=== PATIENT | female | born 1980 | race Caucasian/White ===

== ENCOUNTER 2017-12-12 19:27 | Emergency (ER) | payer SELFPAY ==
--- NOTE | 2017-12-12 20:03 | ER ---
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 Transition of care: patient was not received from another setting of care. Onset of symptoms is unknown. Care prior to arrival: None. 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 - Social history:: Smoking status: Patient uses tobacco products, smokes one pack cigarettes per day. Screenin:19 Abuse screen: Denies threats or abuse. Denies injuries from another. Nutritional aj screening: No deficits noted. Tuberculosis screening: No symptoms or risk factors identified. Fall Risk None identified. Assessment: 20:01 General: Appears in no apparent distress. comfortable, Behavior is calm, cooperative, aj appropriate for age. Pain: Complains of pain in left arm and anterior aspect of left shoulder. Neuro: Level of Consciousness is awake, alert, obeys commands, Oriented to person, place, time, situation, Gait is steady, Speech is normal, Facial symmetry appears normal. Respiratory: Airway is patent Respiratory effort is even, unlabored, Respiratory pattern is regular, symmetrical. Derm: Skin is intact, is healthy with good turgor, Skin is pink, warm \T\ dry. normal. Musculoskeletal: Circulation, motion, and sensation intact. Reports numbness in left arm. Vital Signs: 19:51 BP 110 / 91; Pulse 106; Resp 18 S; Temp 98.5(O); Pulse Ox 97% on R/A; Weight 104.33 kg bb (R); Height 5 ft. 7 in. (170.18 cm) (R); Pain 7/10; 19:51 Body Mass Index 36.02 (104.33 kg, 170.18 cm) ED Course: 19:30 Patient arrived in ED. al2 19:46 Anastasia Mcgee FNP-C is [facility]. kb 19:46 Shade Johnston MD is Attending Physician. kb 19:49 Triage completed. bb 19:51 Arm band placed on Patient placed in an exam room, on a stretcher, on pulse oximetry. bb 19:53 Era Stroud, RN is Primary Nurse. aj 20:19 Patient has correct armband on for positive identification. aj 20:19 No provider procedures requiring assistance completed. Patient did not have IV access aj during this emergency room visit. Administered Medications: No medications were administered Outcome: 20:02 Discharge ordered by MD. kb 20:19 Discharged to home ambulatory. aj 20:19 Condition: good 20:19 Discharge instructions given to patient, Instructed on discharge instructions, follow up and referral plans. medication usage, Demonstrated understanding of instructions, follow-up care, medications, Prescriptions given X 2. 20:20 Patient left the ED. aj Signatures: Anastasia Mcgee FNP-C FNP-Era Yao, RN RN Sun Willson RN RN Lorene Harkins al2
--- NOTE | 2017-12-12 20:03 | EDPHYS ---
Physician Documentation [facility] Name: Barbara Acevedo Age: 37 yrs Sex: Female : 1980 Arrival Date: 12/12/2017 Time: 19:30 Bed 14 Private MD: ED Physician Shade Johnston HPI: 12/12 19:57 This 37 yrs old Female presents to ER via Ambulatory with complaints of arm kb pain, swollen lymphnode. 19:57 The patient or guardian complains of decreased range of motion, pain, that is chronic. kb The complaints affect the anterior aspect of left shoulder. Context: The problem was sustained at home, resulted from a chronic condition. Onset: The symptoms/episode began/occurred 2 year(s) ago, and became worse today. Treatment prior to arrival includes: no previous treatment. Modifying factors: The symptoms are alleviated by nothing. the symptoms are aggravated by movement. Associated signs and symptoms: Pertinent positives: decreased range of motion, pain. Severity of symptoms: At their worst the symptoms were moderate, in the emergency department the symptoms are unchanged. The patient has experienced similar episodes in the past, several times. The patient has not recently seen a physician. Pt complains of left arm pain and numbness that has been ongoing after having a tumor removed in 2014. States it has been worse today. Also reports a lymphnode that has been enlarged for 8 years. States it got bigger 6 months ago. . 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 - Social history:: Smoking status: Patient uses tobacco products, smokes one pack cigarettes per day. ROS: 19:55 Constitutional: Negative for fever, chills, and weight loss, Cardiovascular: Negative kb for chest pain, palpitations, and edema, Respiratory: Negative for shortness of breath, cough, wheezing, and pleuritic chest pain, Abdomen/GI: Negative for abdominal pain, nausea, vomiting, diarrhea, and constipation, Skin: Negative for injury, rash, and discoloration, Neuro: Negative for headache, weakness, numbness, tingling, and seizure. 19:55 Neck: Positive for swollen nodes. 19:55 MS/extremity: Positive for pain, paresthesias, of the left arm. Exam: 19:55 Constitutional: This is a well developed, well nourished patient who is awake, alert, kb and in no acute distress. Head/Face: Normocephalic, atraumatic. Chest/axilla: Normal chest wall appearance and motion. Nontender with no deformity. No lesions are appreciated. Cardiovascular: Regular rate and rhythm with a normal S1 and S2. No gallops, murmurs, or rubs. Normal PMI, no JVD. No pulse deficits. Respiratory: Lungs have equal breath sounds bilaterally, clear to auscultation and percussion. No rales, rhonchi or wheezes noted. No increased work of breathing, no retractions or nasal flaring. Abdomen/GI: Soft, non-tender, with normal bowel sounds. No distension or tympany. No guarding or rebound. No evidence of tenderness throughout. Skin: Warm, dry with normal turgor. Normal color with no rashes, no lesions, and no evidence of cellulitis. Neuro: Awake and alert, GCS 15, oriented to person, place, time, and situation. Cranial nerves II-XII grossly intact. Motor strength 5/5 in all extremities. Sensory grossly intact. Cerebellar exam normal. Normal gait. 19:55 Neck: Lymph nodes: lymphadenopathy is appreciated, submandibular nodes, right side . 19:55 Musculoskeletal/extremity: Extremities: grossly normal except: noted in the left arm: decreased ROM, pain, ROM: limited active range of motion due to pain, in the anterior aspect of left shoulder, Circulation is intact in all extremities. Sensation intact. Vital Signs: 19:51 BP 110 / 91; Pulse 106; Resp 18 S; Temp 98.5(O); Pulse Ox 97% on R/A; Weight 104.33 kg bb (R); Height 5 ft. 7 in. (170.18 cm) (R); Pain 7/10; 19:51 Body Mass Index 36.02 (104.33 kg, 170.18 cm) carina MDM: 19:46 Patient medically screened. kb 19:54 Data reviewed: vital signs, nurses notes. Data interpreted: Pulse oximetry: on room air kb is 97 %. Interpretation: normal. Counseling: I had a detailed discussion with the patient and/or guardian regarding: the historical points, exam findings, and any diagnostic results supporting the discharge/admit diagnosis, the need for outpatient follow up, a family practitioner, to return to the emergency department if symptoms worsen or persist or if there are any questions or concerns that arise at home. 20:00 ED course: Pt educated to follow up with Dr Lewis (PCP) about enlarged lymphnode x8 kb years. Pt has no difficulty swallowing, speaking or breathing. . Administered Medications: No medications were administered Disposition: 12/13 15:55 Co-signature as Attending Physician, Shade Johnston MD I agree with the assessment and michael plan of care. Disposition: 12/12/17 20:02 Discharged to Home. Impression: Radiculopathy. - Condition is Stable. - Discharge Instructions: Cervical Radiculopathy, [id number]. - Prescriptions for Prednisone 20 mg Oral Tablet - take 1 tablet by ORAL route once daily for 5 days; 5 tablet. Cyclobenzaprine 10 mg Oral Tablet - take 1 tablet by ORAL route every 8 hours As needed; 21 tablet. - Medication Reconciliation Form, Thank You Letter, Antibiotic Education, Prescription Opioid Use form. - Follow up: Emergency Department; When: As needed; Reason: Worsening of condition. Follow up: Private Physician; When: 2 - 3 days; Reason: Recheck today's complaints, Continuance of care, Re-evaluation by your physician. Signatures: Anastasia Mcgee, BARREL FILLER-C BARREL FILLER-Era Yao, RN Shade Grissom MD MD cha Ballard, Brenda, CYNTHIA RN carina Corrections: (The following items were deleted from the chart) 12/12 19:55 19:55 MS/extremity: Positive for pain, paresthesias, kb kb
[2017-12-12 20:24] VITALS: BP 110/91; TEMP 98.5; O2SAT 97
== END 2017-12-12 20:20 | disposition home or self-care (01) ==
LOC: ER 19:27
DX: M54.10 Radiculopathy, site unspecified (principal); J45.909 Unspecified asthma, uncomplicated; F17.210 Nicotine dependence, cigarettes, uncomplicated
CPT/HCPCS: 99283

== ENCOUNTER 2018-01-30 12:59 | Emergency (ER) | payer SELFPAY ==
[2018-01-30] MEDS ORDERED: METHYLPREDNISOLONE 125 MG INJ ONE (13:43)
[2018-01-30] MEDS ORDERED: ALBUTEROL 2.5 MG/3 ML NEB SOL ONE (13:43)
[2018-01-30] MEDS ORDERED: IPRATROPIUM BROM 0.5MG/2.5ML ONE (13:44)
--- NOTE | 2018-01-30 14:12 | RAD REPORT ---
EXAM DESCRIPTION: RAD - Chest Pa And Lat (2 Views) - 01/30/2018 1:50 pm CLINICAL HISTORY: Cough and congestion, dyspnea COMPARISON: February 2017 TECHNIQUE: PA and lateral views of the chest were obtained. FINDINGS: The lungs are clear of an acute process. No failure or volume overload. Trachea is midline . Heart size is normal and central vasculature is within normal limits. No pleural effusion or pne umothorax seen. No acute bone finding. Multiple old bilateral rib fracture changes noted. An acute b one process is not seen. No aortic abnormality. IMPRESSION: No acute cardiopulmonary process. No suspicious change from comparison.
--- NOTE | 2018-01-30 14:32 | ER ---
Nurse's Notes [facility] Name: Barbara Acevedo Age: 37 yrs Sex: Female : 1980 Arrival Date: 01/30/2018 Time: 13:02 Bed 25 Private MD: None, None Diagnosis: Asthma;Dyspnea, unspecified Presentation: 01/30 13:26 Presenting complaint: Patient states: Cough and nasal congestion since yesterday. iw Patient reports she has been using her albuterol inhaler more. Transition of care: patient was not received from another setting of care. Onset of symptoms was January 29, 2018. Care prior to arrival: None. 13:26 Method Of Arrival: Ambulatory iw 13:26 Acuity: ESTUARDO 4 iw 15:03 Initial Sepsis Screen: Does the patient meet any 2 criteria? No. Patient's initial tl3 sepsis screen is negative. Does the patient have a suspected source of infection? No. Patient's initial sepsis screen is negative. Triage Assessment: 13:27 General: Appears in no apparent distress. comfortable, Behavior is calm, cooperative, iw appropriate for age. Pain: Denies pain. EENT: Reports nasal congestion nasal discharge. Neuro: Level of Consciousness is awake, alert, obeys commands, Oriented to person, place, time, situation, Appropriate for age. Respiratory: Reports cough that is Airway is patent Respiratory effort is even, unlabored, Respiratory pattern is regular, symmetrical. Derm: Skin is intact, is healthy with good turgor, Skin is pink, warm \T\ dry. normal. 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 - Social history:: Smoking status: Patient uses tobacco products, smokes one pack cigarettes per day. - Family history:: not pertinent. - Hospitalizations: : No recent hospitalization is reported. Screenin:34 Abuse screen: Denies threats or abuse. Nutritional screening: No deficits noted. tl3 Tuberculosis screening: No symptoms or risk factors identified. Fall Risk None identified. Assessment: 13:34 General: Appears uncomfortable, well groomed, well developed, well nourished, Behavior tl3 is calm, cooperative, appropriate for age. Pain: Denies pain. Neuro: Level of Consciousness is awake, alert, obeys commands, Oriented to person, place, time, situation, Appropriate for age. Cardiovascular: Heart tones S1 S2 present Capillary refill < 3 seconds in bilateral fingers. Respiratory: Airway is patent Trachea midline Respiratory effort is even, unlabored, Respiratory pattern is regular, symmetrical, Breath sounds are clear bilaterally. Respiratory: Reports shortness of breath has been having cough and wheezing for two weeks, but has gotten progressively worse, has used inhaler 4X today. GI: No signs and/or symptoms were reported involving the gastrointestinal system. : No signs and/or symptoms were reported regarding the genitourinary system. EENT: No signs and/or symptoms were reported regarding the EENT system. Derm: No signs and/or symptoms reported regarding the dermatologic system. Musculoskeletal: No signs and/or symptoms reported regarding the musculoskeletal system. 14:16 Reassessment: Patient appears in no apparent distress at this time. No changes from tl3 previously documented assessment. Patient and/or family updated on plan of care and expected duration. Pain level reassessed. Patient is alert, oriented x 3, equal unlabored respirations, skin warm/dry/pink. pt on neb treatment. Vital Signs: 13:27 BP 123 / 65; Pulse 86; Resp 20; Temp 98.0; Pulse Ox 98% on R/A; Weight 98.43 kg; Height iw 5 ft. 7 in. (170.18 cm); 13:34 BP 107 / 94; Pulse 82; Resp 18; Pulse Ox 99% on R/A; tl3 14:16 Pulse 79; Resp 18; Pulse Ox 100% on Nebulizer Mask; tl3 13:27 Body Mass Index 33.99 (98.43 kg, 170.18 cm) iw ED Course: 13:02 Patient arrived in ED. mr 13:02 None, None is Private Physician. mr 13:27 Triage completed. iw 13:27 Arm band placed on left wrist. Patient placed in an exam room. iw 13:29 Cristopher Worthington MD is Attending Physician. rn 13:29 Dariana Deal, CYNTHIA is Primary Nurse. tl3 13:34 Resting quietly. Awaiting for x-ray. tl3 13:34 Patient has correct armband on for positive identification. Bed in low position. Call tl3 light in reach. Side rails up X 1. Adult w/ patient. Pulse ox on. NIBP on. 13:34 No provider procedures requiring assistance completed. Patient did not have IV access tl3 during this emergency room visit. 13:45 Patient moved to radiology via wheelchair. tl3 13:49 XRAY Chest Pa And Lat (2 Views) In Process Unspecified. EDMS Administered Medications: 13:50 Drug: SOLU-Medrol 125 mg Route: IM; Site: left gluteus; tl3 14:18 Follow up: Response: No adverse reaction tl3 13:55 Drug: Albuterol - atroVENT (3:1) (2.5 mg - 0.5 mg) 3 ml Route: Nebulizer; tl3 15:04 Follow up: Response: No adverse reaction; Wheezing diminished tl3 Outcome: 14:31 Discharge ordered by . rn 15:03 Discharged to home ambulatory. tl3 15:03 Condition: good 15:03 Discharge instructions given to patient, Instructed on discharge instructions, follow up and referral plans. medication usage, Demonstrated understanding of instructions, follow-up care, medications, Prescriptions given X 2, stressed proper use of inhaler when needed 15:04 Patient left the ED. tl3 Signatures: Dispatcher [employer] EDOH Annie Pimentel Irene, RN RN Cristopher Worthington MD MD rn Lowrey, Tammy, CYNTHIA RN tl3
--- NOTE | 2018-01-30 14:32 | EDPHYS ---
Physician Documentation [facility] Name: Barbara Acevedo Age: 37 yrs Sex: Female : 1980 Arrival Date: 01/30/2018 Time: 13:02 Bed 25 Private MD: None, None ED Physician Cristopher Worthington HPI: 01/30 14:01 This 37 yrs old Female presents to ER via Ambulatory with complaints of rn Asthma Exacerbation. 14:01 Onset: The symptoms/episode began/occurred this morning. Modifying factors: The rn symptoms are alleviated by nothing, the symptoms are aggravated by nothing. Severity of symptoms: At their worst the symptoms were mild in the emergency department the symptoms are unchanged. The patient has experienced similar episodes in the past. The patient has not recently seen a physician. 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 - Social history:: Smoking status: Patient uses tobacco products, smokes one pack cigarettes per day. - Family history:: not pertinent. - Hospitalizations: : No recent hospitalization is reported. ROS: 14:01 Constitutional: Negative for fever, chills, and weight loss, Eyes: Negative for injury, rn pain, redness, and discharge, Cardiovascular: Negative for chest pain, palpitations, and edema, Respiratory: Negative for pleuritic chest pain, Abdomen/GI: Negative for abdominal pain, nausea, vomiting, diarrhea, and constipation, MS/Extremity: Negative for injury and deformity, Skin: Negative for injury, rash, and discoloration, Neuro: Negative for headache, weakness, numbness, tingling, and seizure Exam: 14:01 Constitutional: This is a well developed, well nourished patient who is awake, alert, rn and in no acute distress. Head/Face: Normocephalic, atraumatic. Eyes: Pupils equal round and reactive to light, extra-ocular motions intact. Lids and lashes normal. Conjunctiva and sclera are non-icteric and not injected. Cornea within normal limits. Periorbital areas with no swelling, redness, or edema. Neck: Trachea midline, no thyromegaly or masses palpated, and no cervical lymphadenopathy. Supple, full range of motion without nuchal rigidity, or vertebral point tenderness. No Meningismus. Cardiovascular: Regular rate and rhythm with a normal S1 and S2. No gallops, murmurs, or rubs. Normal PMI, no JVD. No pulse deficits. Respiratory: focal wheezing RUL, mild tachypnea, no retractions, walked to room Abdomen/GI: Soft, non-tender, with normal bowel sounds. No distension or tympany. No guarding or rebound. No evidence of tenderness throughout. MS/ Extremity: Pulses equal, no cyanosis. Neurovascular intact. Full, normal range of motion. Equal circumference. Neuro: Awake and alert, GCS 15, oriented to person, place, time, and situation. Cranial nerves II-XII grossly intact. Motor strength 5/5 in all extremities. Sensory grossly intact. Cerebellar exam normal. Normal gait. Vital Signs: 13:27 BP 123 / 65; Pulse 86; Resp 20; Temp 98.0; Pulse Ox 98% on R/A; Weight 98.43 kg; Height iw 5 ft. 7 in. (170.18 cm); 13:34 BP 107 / 94; Pulse 82; Resp 18; Pulse Ox 99% on R/A; tl3 14:16 Pulse 79; Resp 18; Pulse Ox 100% on Nebulizer Mask; tl3 13:27 Body Mass Index 33.99 (98.43 kg, 170.18 cm) iw MDM: 13:29 Patient medically screened. rn 14:31 Differential diagnosis: acute asthma, reactive airway, URI. Data reviewed: vital signs, rn nurses notes, lab test result(s), radiologic studies, plain films, and as a result, I will discharge patient. Counseling: I had a detailed discussion with the patient and/or guardian regarding: the historical points, exam findings, and any diagnostic results supporting the discharge/admit diagnosis, lab results, the need for outpatient follow up, to return to the emergency department if symptoms worsen or persist or if there are any questions or concerns that arise at home. Response to treatment: the patient's symptoms have mildly improved after treatment, and as a result, I will discharge patient. Special discussion: I discussed with the patient/guardian in detail that at this point there is no indication for admission to the hospital. It is understood, however, that if the symptoms persist or worsen the patient needs to return immediately for re-evaluation. 01/30 13:38 Order name: Strep; Complete Time: 14:31 rn 01/30 13:38 Order name: Flu; Complete Time: 14:31 rn 01/30 13:36 Order name: XRAY Chest Pa And Lat (2 Views); Complete Time: 14:14 rn 01/30 14:30 Order name: Throat Culture EDMS Administered Medications: 13:50 Drug: SOLU-Medrol 125 mg Route: IM; Site: left gluteus; tl3 14:18 Follow up: Response: No adverse reaction tl3 13:55 Drug: Albuterol - atroVENT (3:1) (2.5 mg - 0.5 mg) 3 ml Route: Nebulizer; tl3 15:04 Follow up: Response: No adverse reaction; Wheezing diminished tl3 Disposition: 01/30/18 14:31 Discharged to Home. Impression: Asthma, Dyspnea, unspecified. - Condition is Stable. - Discharge Instructions: Shortness of Breath, Smoking Cessation, Asthma, Acute Bronchospasm. - Prescriptions for Prednisone 20 mg Oral Tablet - take 3 tablet by ORAL route once daily for 5 days; 15 tablet. Zithromax Z- Juan Carlos 250 mg Oral Tablet - take 1 tablet by ORAL route as directed for 5 days Day 1 - take two (2) tablets one time. Day 2, 3, 4 , 5 take one (1) tablet once daily.; 6 tablet. - Medication Reconciliation Form, Thank You Letter, Antibiotic Education, Prescription Opioid Use form. - Follow up: Private Physician; When: As needed; Reason: Recheck today's complaints, Re-evaluation by your physician. - Problem is new. - Symptoms have improved. Signatures: Dispatcher [employer] EDMS Archana Rock RN RN iw Nieto, Roman, MD MD rn Lowrey, Tammy, RN RN tl3 Corrections: (The following items were deleted from the chart) 15:04 14:31 01/30/2018 14:31 Discharged to Home. Impression: Asthma; Dyspnea, unspecified. tl3 Condition is Stable. Forms are Medication Reconciliation Form, Thank You Letter, Antibiotic Education, Prescription Opioid Use. Follow up: Private Physician; When: As needed; Reason: Recheck today's complaints, Re-evaluation by your physician. Problem is new. Symptoms have improved. rn
[2018-01-30 15:10] VITALS: TEMP 98
[2018-01-30 15:11] VITALS: BP 107/94
[2018-01-30 15:12] VITALS: O2SAT 100
== END 2018-01-30 15:04 | disposition home or self-care (01) ==
LOC: ER 12:59
DX: J45.901 Unspecified asthma with (acute) exacerbation (principal); F17.210 Nicotine dependence, cigarettes, uncomplicated
CPT/HCPCS: 71046; 87070; 87081; 87804; 94640; 96372; 99284; J2930

== ENCOUNTER 2018-04-18 08:56 | Emergency (ER) | payer SELFPAY ==
[2018-04-18] MEDS ORDERED: METHYLPREDNISOLONE 125 MG INJ ONE (10:26)
[2018-04-18] MEDS ORDERED: KETOROLAC 30 MG/ML INJ ONE (10:27)
[2018-04-18] MEDS ORDERED: MORPHINE 4 MG/ML SYR ONE (10:27)
--- NOTE | 2018-04-18 10:57 | RAD REPORT ---
EXAM DESCRIPTION: CTSpine Lumbar Wo Con04/18/2018 10:37 am CLINICAL HISTORY: Left leg radiculopathy since this morning. COMPARISON: None TECHNIQUE: Computed axial tomography lumbar spine was obtained with coronal and sagittal reconstruct ion. All CT scans are performed using dose optimization technique as appropriate and may include automated exposure control or mA/KV adjustment according to patient size. FINDINGS: No fracture is seen. No dislocation is noted. A small disc bulge is present at L4-5. The thecal sac measures 9 millimeters. A vacuum phenomena is present L5-S1. There is suggestion of a right conjoined nerve root L5-S1 IMPRESSION: Negative for a lumbar fracture. Mild spondylosis L4-5 resulting in mild central spinal stenosis If the patient continues to have symptoms to suggest a disc herniation then MRI would be recommended
--- NOTE | 2018-04-18 11:42 | EDPHYS ---
Physician Documentation [facility] Name: Barbara Acevedo Age: 37 yrs Sex: Female : 1980 Arrival Date: 04/18/2018 Time: 09:01 Bed 14 Private MD: None, None ED Physician Tico Scott HPI: 04/18 10:11 This 37 yrs old Female presents to ER via Ambulatory with complaints of Hip kdr Pain. 10:11 The patient or guardian reports decreased range of motion, pain. that occurred at home, kdr sustained from unknown reason, There is no obvious deformity, The patient is not able to ambulate. Patient is not able to bear weight. The patient's discomfort radiates to the left hamstring and posterior aspect of left knee. Onset: The symptoms/episode began/occurred this morning. Modifying factors: The symptoms are alleviated by remaining still, the symptoms are aggravated by any movement, weight bearing. Associated signs and symptoms: Loss of consciousness: the patient experienced no loss of consciousness, Pertinent negatives: abdominal pain, altered mental status, anorexia, chest pain, diarrhea, dizziness, dysuria, fever, headache, incontinence, nausea, shortness of breath, vomiting, weakness. Severity of symptoms: At their worst the symptoms were moderate, severe, incapacitating, just prior to arrival, in the emergency department the symptoms have improved, mildly. The patient has not experienced similar symptoms in the past, Has had minor pain in the left hip before but nothing like today. The patient has not recently seen a physician. 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 - Social history:: Smoking status: Patient uses tobacco products, smokes one pack cigarettes per day. - Ebola Screening: : Patient negative for fever greater than or equal to 101.5 degrees Fahrenheit, and additional compatible Ebola Virus Disease symptoms Patient denies exposure to infectious person Patient denies travel to an Ebola-affected area in the 21 days before illness onset No symptoms or risks identified at this time. ROS: 10:11 Constitutional: Negative for fever, chills, and weight loss, Eyes: Negative for injury, kdr pain, redness, and discharge. 10:11 MS/extremity: Positive for injury or acute deformity, decreased range of motion, pain. Exam: 10:11 Constitutional: This is a well developed, well nourished patient who is awake, alert, kdr and in no acute distress. Head/Face: Normocephalic, atraumatic. Eyes: Pupils equal round and reactive to light, extra-ocular motions intact. Lids and lashes normal. Conjunctiva and sclera are non-icteric and not injected. Cornea within normal limits. Periorbital areas with no swelling, redness, or edema. Neck: Trachea midline, no thyromegaly or masses palpated, and no cervical lymphadenopathy. Supple, full range of motion without nuchal rigidity, or vertebral point tenderness. No Meningismus. Chest/axilla: Normal chest wall appearance and motion. Nontender with no deformity. No lesions are appreciated. Cardiovascular: Regular rate and rhythm with a normal S1 and S2. No gallops, murmurs, or rubs. Normal PMI, no JVD. No pulse deficits. Respiratory: Lungs have equal breath sounds bilaterally, clear to auscultation and percussion. No rales, rhonchi or wheezes noted. No increased work of breathing, no retractions or nasal flaring. Abdomen/GI: Soft, non-tender, with normal bowel sounds. No distension or tympany. No guarding or rebound. No evidence of tenderness throughout. Skin: Warm, dry with normal turgor. Normal color with no rashes, no lesions, and no evidence of cellulitis. MS/ Extremity: Pulses equal, no cyanosis. Neurovascular intact. Full, normal range of motion. 10:11 Back: pain, that is mild, Midline pain is mild in lumbar region. More significant pain in the left buttock that radiates into the left posterior thigh, ROM is painful, normal spinal alignment noted, CVA tenderness, is absent, Straight leg raises: right lower extremity does not illicit pain, left lower extremity illicits pain, at 15 degrees. Vital Signs: 09:12 BP 122 / 76; Pulse 85; Resp 16; Temp 98.2; Pulse Ox 100% on R/A; Weight 92.99 kg; iw Height 5 ft. 7 in. (170.18 cm); Pain 9/10; 10:13 BP 103 / 70; Pulse 86; Resp 17; Pulse Ox 100% on R/A; tw2 11:00 BP 122 / 78; Pulse 76; Resp 18; Pulse Ox 99% on R/A; Pain 5/10; em 12:01 BP 125 / 79; Pulse 81; Resp 18; Pulse Ox 97% on R/A; Pain 3/10; em 09:12 Body Mass Index 32.11 (92.99 kg, 170.18 cm) iw MDM: 10:11 Data reviewed: vital signs, nurses notes. Counseling: I had a detailed discussion with kdr the patient and/or guardian regarding: the historical points, exam findings, and any diagnostic results supporting the discharge/admit diagnosis, radiology results, the need for outpatient follow up. 11:41 Patient medically screened. kdr 04/18 10:11 Order name: CT Lumbar Spine Wo Con; Complete Time: 11:02 kdr Administered Medications: 10:33 Drug: SOLU-Medrol 125 mg Route: IVP; Site: right antecubital; iw 10:59 Follow up: Response: No adverse reaction em 10:33 Drug: TORadol 30 mg Route: IVP; Site: right antecubital; iw 10:59 Follow up: Response: No adverse reaction; Pain is decreased em 10:34 Drug: morphine 4 mg Route: IVP; Site: right antecubital; iw 10:59 Follow up: Response: No adverse reaction; Pain is decreased em Disposition: 04/18/18 11:41 Discharged to Home. Impression: Sciatica, left side. - Condition is Stable. - Discharge Instructions: Sciatica, [id number]. - Prescriptions for Ibuprofen 800 mg Oral Tablet - take 1 tablet by ORAL route every 8 hours As needed take with food; 30 tablet. Tylenol- Codeine #3 300-30 mg Oral Tablet - take 2 tablets by ORAL route every 4-6 hours As needed; 16 tablet. Cyclobenzaprine 10 mg Oral Tablet - take 1 tablet by ORAL route every 8 hours As needed; 15 tablet. Medrol (Juan Carlos) 4 mg Oral Tablets, Dose Pack - take 1 tablet by ORAL route as directed - follow package instructions; 1 packet. - Medication Reconciliation Form, Thank You Letter, Prescription Opioid Use, Work release form form. - Follow up: Private Physician; When: 2 - 3 days; Reason: If symptoms return, Further diagnostic work-up, Recheck today's complaints, Continuance of care, Re-evaluation by your physician. - Problem is new. - Symptoms have improved. - Notes: If you pain is not resolving over the next few days, you will need an MRI of your spine. Signatures: Dispatcher [employer] EDME Tico Scott MD MD kdr Sanchez Heller, ELECTRICIAN SHOP ELECTRICIAN SHOP em Archana Rock RN RN iw Corrections: (The following items were deleted from the chart) 10:59 10:11 Urine Dipstick-Ancillary ordered. kdr em 11:00 10:11 Urine Test ordered. [facility] em 12:02 11:41 04/18/2018 11:41 Discharged to Home. Impression: Sciatica, left side. Condition em is Stable. Forms are Medication Reconciliation Form, Thank You Letter, Antibiotic Education, Prescription Opioid Use. Follow up: Private Physician; When: 2 - 3 days; Reason: If symptoms return, Further diagnostic work-up, Recheck today's complaints, Continuance of care, Re-evaluation by your physician. Problem is new. Symptoms have improved. kdr
--- NOTE | 2018-04-18 11:42 | ER ---
Nurse's Notes [facility] Name: Barbara Acevedo Age: 37 yrs Sex: Female : 1980 Arrival Date: 04/18/2018 Time: 09:01 Bed 14 Private MD: None, None Diagnosis: Sciatica, left side Presentation: 04/18 09:10 Presenting complaint: Patient states: c/o left hip pian radiating to left knee when she iw stepped out of bed this morning, pain shoots from hip to knee, denies injury. Transition of care: patient was not received from another setting of care. Onset of symptoms was April 18, 2018. Risk Assessment: Do you want to hurt yourself or someone else? Patient reports no desire to harm self or others. Initial Sepsis Screen: Does the patient meet any 2 criteria? No. Patient's initial sepsis screen is negative. Does the patient have a suspected source of infection? No. Patient's initial sepsis screen is negative. Care prior to arrival: None. 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 - Social history:: Smoking status: Patient uses tobacco products, smokes one pack cigarettes per day. - Ebola Screening: : Patient negative for fever greater than or equal to 101.5 degrees Fahrenheit, and additional compatible Ebola Virus Disease symptoms Patient denies exposure to infectious person Patient denies travel to an Ebola-affected area in the 21 days before illness onset No symptoms or risks identified at this time. Screenin:27 Abuse screen: Denies threats or abuse. Nutritional screening: No deficits noted. em Tuberculosis screening: No symptoms or risk factors identified. Fall Risk None identified. Assessment: 09:15 General: Appears in no apparent distress. Behavior is calm, cooperative. Pain: iw Complains of pain in left hamstring Pain radiates to posterior aspect of left knee Pain currently is 9 out of 10 on a pain scale. Neuro: Level of Consciousness is awake, alert, obeys commands, Oriented to person, place, time, situation, Moves all extremities. Full function. Cardiovascular: Patient's skin is warm and dry. Derm: Skin is pink, warm \T\ dry. normal. Musculoskeletal: Range of motion: intact in all extremities. 10:30 Reassessment: Patient appears in no apparent distress at this time. Patient and/or em family updated on plan of care and expected duration. Pain level reassessed. Patient is alert, oriented x 3, equal unlabored respirations, skin warm/dry/pink. 11:18 Reassessment: No changes from previously documented assessment. Patient and/or family em updated on plan of care and expected duration. Pain level reassessed. Patient is alert, oriented x 3, equal unlabored respirations, skin warm/dry/pink. rates pain 5/10 Patient states feeling better. 11:59 Reassessment: Patient appears in no apparent distress at this time. Patient and/or em family updated on plan of care and expected duration. Pain level reassessed. Patient is alert, oriented x 3, equal unlabored respirations, skin warm/dry/pink. rates pain 3/10 Patient states feeling better. Vital Signs: 09:12 BP 122 / 76; Pulse 85; Resp 16; Temp 98.2; Pulse Ox 100% on R/A; Weight 92.99 kg; iw Height 5 ft. 7 in. (170.18 cm); Pain 9/10; 10:13 BP 103 / 70; Pulse 86; Resp 17; Pulse Ox 100% on R/A; tw2 11:00 BP 122 / 78; Pulse 76; Resp 18; Pulse Ox 99% on R/A; Pain 5/10; em 12:01 BP 125 / 79; Pulse 81; Resp 18; Pulse Ox 97% on R/A; Pain 3/10; em 09:12 Body Mass Index 32.11 (92.99 kg, 170.18 cm) iw ED Course: 09:01 Patient arrived in ED. mr 09:01 None, None is Private Physician. mr 09:10 Archana Rock, RN is Primary Nurse. iw 09:11 Triage completed. iw 09:12 Arm band placed on. iw 09:21 Tico Scott MD is Attending Physician. kdr 09:27 Patient has correct armband on for positive identification. Bed in low position. Call em light in reach. Adult w/ patient. 09:27 No provider procedures requiring assistance completed. em 10:34 CT completed. Patient tolerated procedure well. Patient moved to CT via wheelchair. Patient moved back from CT. 10:36 CT Lumbar Spine Wo Con In Process Unspecified. EDMS 10:57 Sanchez Heller LVN is Primary Nurse. em 12:01 IV discontinued, intact, bleeding controlled, No redness/swelling at site. Pressure em dressing applied. Administered Medications: 10:33 Drug: SOLU-Medrol 125 mg Route: IVP; Site: right antecubital; iw 10:59 Follow up: Response: No adverse reaction em 10:33 Drug: TORadol 30 mg Route: IVP; Site: right antecubital; iw 10:59 Follow up: Response: No adverse reaction; Pain is decreased em 10:34 Drug: morphine 4 mg Route: IVP; Site: right antecubital; iw 10:59 Follow up: Response: No adverse reaction; Pain is decreased em Outcome: 11:41 Discharge ordered by . kdr 12:01 Discharged to home ambulatory. em 12:01 Condition: good 12:01 Discharge instructions given to patient, Instructed on discharge instructions, follow up and referral plans. the need for admit, no drinking with medication, no driving heavy equipment, medication usage, Demonstrated understanding of instructions, follow-up care, medications, Prescriptions given X 4. 12:02 Patient left the ED. em Signatures: Dispatcher [employer] EDNM Tico Scott MD MD [facility] Annie Pimentel Sigrid Alan Sanchez Heller LVN LVN em Archana Rock, CYNTHIA MARIE iw Mala Luna RN RN tw2
[2018-04-18 12:08] VITALS: TEMP 98.2
[2018-04-18 12:12] VITALS: BP 125/79; O2SAT 97
== END 2018-04-18 12:02 | disposition home or self-care (01) ==
LOC: ER 08:56
DX: M54.32 Sciatica, left side (principal); F17.210 Nicotine dependence, cigarettes, uncomplicated; J45.909 Unspecified asthma, uncomplicated
CPT/HCPCS: 72131; 96374; 96375; 99284; J2930

== ENCOUNTER 2019-01-29 16:35 | Emergency (ER) | payer SELFPAY ==
[2019-01-29] MEDS ORDERED: predniSONE 20 MG TAB ONE (17:34)
[2019-01-29] MEDS ORDERED: IPRATROPIUM BROM 0.5MG/2.5ML ONE (17:34)
[2019-01-29] MEDS ORDERED: ALBUTEROL 2.5 MG/3 ML NEB SOL ONE (17:34)
--- NOTE | 2019-01-29 18:25 | RAD REPORT ---
EXAM DESCRIPTION: RAD - Ribs Left - 01/29/2019 5:44 pm CLINICAL HISTORY: fall in bathroom;Pain COMPARISON: Chest Pa And Lat (2 Views) dated 01/30/2018 FINDINGS: Healed left posterolateral rib fractures are seen involving ribs number 6, 7 and 8. Lucenc y is seen in posterior left sixth, seventh and ninth ribs in slightly different location from the hea led fracture deformities, likely indicating acute fractures.
--- NOTE | 2019-01-29 18:38 | RAD REPORT ---
EXAM DESCRIPTION: CT - Thorax Wo Con CLINICAL HISTORY: Chest pain left side rib pain;Pain COMPARISON: No comparisons FINDINGS: The lungs are clear. No pleural thickening or pleural effusion. No pneumothorax. No axillary, mediastinal or hilar adenopathy. Several old healed left lateral rib fractures are present. There is no definitive acute rib fracture visualized. No gross upper abdominal finding. All CT scans are performed using dose optimization technique as appropriate and may include automated exposure control or mA/KV adjustment according to patient size. IMPRESSION: No acute intrathoracic abnormality discerned. Several old left rib fractures are present without a definitive acute rib fracture seen.
--- NOTE | 2019-01-29 19:32 | EDPHYS ---
Physician Documentation [facility] Name: Barbara Patton Age: 38 yrs Sex: Female : 1980 Arrival Date: 01/29/2019 Time: 16:39 Bed 16 Private MD: ED Physician José Miguel Neff HPI: 01/29 17:21 This 38 yrs old Female presents to ER via Ambulatory with complaints of cp Shortness Of Breath, Fall Injury. 17:21 The patient or guardian reports chest pain that is located primarily in the left cp lateral anterior chest. The pain does not radiate. Associated signs and symptoms: Pertinent positives: shortness of breath, Pertinent negatives: abdominal pain, cough, dizziness, headache, lower extremity pain, lower extremity swelling, palpitations, syncope, vomiting. 17:22 Patient reports slip and fall in bathroom 5 days ago and now c/o pain lateral and below cp left breast. 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 - Social history:: Smoking status: Patient/guardian denies using tobacco. - Ebola Screening: : Patient negative for fever greater than or equal to 101.5 degrees Fahrenheit, and additional compatible Ebola Virus Disease symptoms Patient denies exposure to infectious person Patient denies travel to an Ebola-affected area in the 21 days before illness onset No symptoms or risks identified at this time. ROS: 17:23 Eyes: Negative for injury, pain, redness, and discharge. cp 17:23 Constitutional: Negative for body aches, chills, fever, poor PO intake. 17:23 ENT: Negative for drainage from ear(s), ear pain, sore throat, difficulty swallowing, difficulty handling secretions. 17:23 Cardiovascular: Positive for chest pain, of the left lateral anterior chest, Negative for edema, palpitations. 17:23 Respiratory: Positive for shortness of breath, wheezing. 17:23 Abdomen/GI: Negative for abdominal pain, nausea, vomiting, and diarrhea. 17:23 Back: Negative for pain at rest, pain with movement. 17:23 Skin: Negative for cellulitis, rash. 17:23 Neuro: Negative for altered mental status, headache, loss of consciousness, weakness. 17:23 All other systems are negative. Exam: 17:25 Head/Face: Normocephalic, atraumatic. cp 17:25 Constitutional: The patient appears in no acute distress, alert, awake, non-toxic, well developed, well nourished. 17:25 Eyes: Periorbital structures: appear normal, Conjunctiva: normal, no chemosis, Sclera: no appreciated abnormality, Lids and lashes: appear normal, bilaterally. 17:25 ENT: External ear(s): are unremarkable, Ear canal(s): are normal, clear, TM's: dullness, bilaterally, Nose: is normal, Mouth: is normal, Posterior pharynx: is normal, airway is patent, no erythema, no exudate. 17:25 Neck: ROM/movement: pain, is not appreciated, limited range of motion, is not appreciated, nuchal rigidity, is not appreciated. 17:25 Chest/axilla: Inspection: normal, Palpation: crepitus, is not appreciated, tenderness, that is mild, of the left lateral anterior chest. 17:25 Cardiovascular: Rate: normal, Rhythm: regular. 17:25 Respiratory: the patient does not display signs of respiratory distress, Respirations: normal, no use of accessory muscles, no retractions, no splinting, no tachypnea, labored breathing, is not present, Breath sounds: decreased breath sounds, are not appreciated, stridor, is not appreciated, wheezing: that is mild, is heard in the right posterior middle lobe and right posterior lower lobe. 17:25 Abdomen/GI: Inspection: abdomen appears normal, Bowel sounds: active, Palpation: abdomen is soft and non-tender, in all quadrants, rebound tenderness, is not appreciated, involuntary guarding, is not appreciated. 17:25 Back: pain, is absent, ROM is normal. 17:25 Musculoskeletal/extremity: Exam is negative for calf tenderness, decreased range of motion, deformity, edema, erythema. 17:25 Skin: no rash present. Vital Signs: 16:42 BP 123 / 81; Pulse 97; Resp 18; Temp 98.7(TE); Pulse Ox 98% on R/A; Weight 72.57 kg; hj Height 5 ft. 7 in. (170.18 cm); Pain 10/10; 17:41 BP 122 / 77; Pulse 82; Resp 17; Pulse Ox 99% on R/A; sg 18:40 BP 126 / 70; Pulse 88; Resp 16; Pulse Ox 100% on R/A; sg 16:42 Body Mass Index 25.06 (72.57 kg, 170.18 cm) MDM: 17:06 Patient medically screened. 19:14 Data reviewed: vital signs, nurses notes. Data interpreted: Pulse oximetry: on room air kb is 98 %. Interpretation: normal. Counseling: I had a detailed discussion with the patient and/or guardian regarding: the historical points, exam findings, and any diagnostic results supporting the discharge/admit diagnosis, radiology results, the need for outpatient follow up, a family practitioner, to return to the emergency department if symptoms worsen or persist or if there are any questions or concerns that arise at home. 01/29 17:16 Order name: XRAY Ribs LEFT; Complete Time: 18:35 cp 01/29 18:06 Order name: CT Chest Wo Con; Complete Time: 18:43 cp Administered Medications: 17:34 Drug: Albuterol 2.5 mg Route: Inhalation; sg 17:34 Drug: AtroVENT Aerosol 0.5 mg Route: Inhalation; 17:34 Drug: predniSONE 60 mg Route: PO; 18:00 Follow up: Response: No adverse reaction Disposition: 01/30 11:58 Co-signature as Attending Physician, José Miguel Neff MD. Disposition: 01/29/19 19:31 Discharged to Home. Impression: Other chest pain - chest wall pain. - Condition is Stable. - Discharge Instructions: Chest Wall Pain. - Medication Reconciliation Form, Thank You Letter, Antibiotic Education, Prescription Opioid Use form. - Follow up: Emergency Department; When: As needed; Reason: Worsening of condition. Follow up: Private Physician; When: 2 - 3 days; Reason: Recheck today's complaints, Continuance of care, Re-evaluation by your physician. Signatures: Dispatcher [employer] EDPR Anastasia Mcgee, Hank Vitcoria RN RN Oneil Ferguson RN RN hj Page, Corey, PA PA cp Starr, Gregory, MD MD Tom, Nishant, RN RN rv Corrections: (The following items were deleted from the chart) 01/29 19:40 19:31 01/29/2019 19:31 Discharged to Home. Impression: Other chest pain - chest wall rv pain. Condition is Stable. Forms are Medication Reconciliation Form, Thank You Letter, Antibiotic Education, Prescription Opioid Use. Follow up: Emergency Department; When: As needed; Reason: Worsening of condition. Follow up: Private Physician; When: 2 - 3 days; Reason: Recheck today's complaints, Continuance of care, Re-evaluation by your physician. kb
--- NOTE | 2019-01-29 19:32 | ER ---
Nurse's Notes [facility] Name: Barbara Patton Age: 38 yrs Sex: Female : 1980 Arrival Date: 01/29/2019 Time: 16:39 Bed 16 Private MD: Diagnosis: Other chest pain-chest wall pain Presentation: 01/29 16:39 Presenting complaint: Patient states: Saturday i fell and slipped on the bath tub, hj denies hitting head and LOC: hurts my L chest area and L arm, reports bruising to the area; reports wheezing since Saturday;. Transition of care: patient was not received from another setting of care. Onset of symptoms was January 29, 2019. Risk Assessment: Do you want to hurt yourself or someone else? Patient reports no desire to harm self or others. Initial Sepsis Screen: Does the patient meet any 2 criteria? No. Patient's initial sepsis screen is negative. Does the patient have a suspected source of infection? No. Patient's initial sepsis screen is negative. Care prior to arrival: None. 16:39 Method Of Arrival: Ambulatory 16:39 Acuity: ESTUARDO 4 Triage Assessment: 17:20 General: Behavior is calm, cooperative, appropriate for age. Respiratory: Reports sg shortness of breath on exertion Onset: The symptoms/episode began/occurred gradually, the patient has mild shortness of breath. 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 - Social history:: Smoking status: Patient/guardian denies using tobacco. - Ebola Screening: : Patient negative for fever greater than or equal to 101.5 degrees Fahrenheit, and additional compatible Ebola Virus Disease symptoms Patient denies exposure to infectious person Patient denies travel to an Ebola-affected area in the 21 days before illness onset No symptoms or risks identified at this time. Screenin:20 Abuse screen: Denies threats or abuse. Denies injuries from another. Nutritional sg screening: No deficits noted. Tuberculosis screening: No symptoms or risk factors identified. Never had TB. Fall Risk None identified. Assessment: 17:20 General: Appears in no apparent distress. well groomed, well developed, well nourished, sg Behavior is calm, cooperative, appropriate for age. Pain: Complains of pain in left lateral anterior chest Quality of pain is described as. Neuro: Level of Consciousness is awake, alert, obeys commands, Oriented to person, place, time, Speech is normal. Cardiovascular: Capillary refill is brisk in bilateral fingers Patient's skin is warm and dry. Chest pain quality is stabbing. Respiratory: Airway is patent Respiratory effort is even, unlabored. GI: Abdomen is round non-distended. : No signs and/or symptoms were reported regarding the genitourinary system. EENT: No signs and/or symptoms were reported regarding the EENT system. Derm: Skin is pink, warm \T\ dry. Musculoskeletal: No signs and/or symptoms reported regarding the musculoskeletal system. 19:35 Respiratory: rv 19:36 Cardiovascular: Rhythm is regular. rv Vital Signs: 16:42 BP 123 / 81; Pulse 97; Resp 18; Temp 98.7(TE); Pulse Ox 98% on R/A; Weight 72.57 kg; hj Height 5 ft. 7 in. (170.18 cm); Pain 10/10; 17:41 BP 122 / 77; Pulse 82; Resp 17; Pulse Ox 99% on R/A; sg 18:40 BP 126 / 70; Pulse 88; Resp 16; Pulse Ox 100% on R/A; sg 16:42 Body Mass Index 25.06 (72.57 kg, 170.18 cm) ED Course: 16:39 Patient arrived in ED. hj 16:41 Triage completed. hj 16:42 Arm band placed on left wrist. hj 17:03 Hank Sanchez, RN is Primary Nurse. sg 17:06 Shade Olguin PA is PHCP. cp 17:06 José Miguel Neff MD is Attending Physician. cp 17:42 Initial Neb Treatment Given as ordered Patient was instructed and evaluated on sg procedure Patient tolerated procedure well without adverse effect. 17:44 XRAY Ribs LEFT In Process Unspecified. EDMS 18:15 PHCP role handed off by Shade Olguin PA kb 18:15 Anastasia Mcgee FNP-C is PHCP. kb 18:[address] via wheelchair. ar 18:23 CT completed. Patient tolerated procedure well. Patient moved back from CT. ar 18:23 CT Chest Wo Con In Process Unspecified. EDMS 19:00 Patient has correct armband on for positive identification. Bed in low position. Call rv light in reach. Side rails up X 1. Pulse ox on. NIBP on. 19:34 No provider procedures requiring assistance completed. Patient did not have IV access rv during this emergency room visit. Administered Medications: 17:34 Drug: Albuterol 2.5 mg Route: Inhalation; sg 17:34 Drug: AtroVENT Aerosol 0.5 mg Route: Inhalation; sg 17:34 Drug: predniSONE 60 mg Route: PO; sg 18:00 Follow up: Response: No adverse reaction sg Outcome: 19:31 Discharge ordered by . kb 19:39 Discharged to home ambulatory. rv 19:39 Condition: good 19:39 Discharge instructions given to patient, Instructed on discharge instructions, follow up and referral plans. Demonstrated understanding of instructions, follow-up care. 19:40 Patient left the ED. rv Signatures: Dispatcher [employer] EDMS Anastasia Mcgee, FACILITY OPERATIONS MANAGER-C FACILITY OPERATIONS MANAGER-CkHank Krause RN RN Oneil Leon RN RN Shade Jesus PA PA cp Jordan, Nathan nj Vicente, Ronaldo, RN RN rv Corrections: (The following items were deleted from the chart) 16:43 16:42 72.57 kg; Height 5 ft. 7 in.; BMI: 25.0; Pain 10/10; hj hj 16:44 16:42 Pulse 97bpm; Resp 18bpm; Pulse Ox 98% RA; Temp 98.7F Temporal; 72.57 kg; Height 5 hj ft. 7 in.; BMI: 25.0; Pain 10/10; hj
[2019-01-29 20:01] VITALS: BP 123/81; TEMP 98.7; O2SAT 98
== END 2019-01-29 19:40 | disposition home or self-care (01) ==
LOC: ER 16:35
DX: R07.89 Other chest pain (principal); W18.2XXA Fall in (into) shower or empty bathtub, initial encounter; Y93.9 Activity, unspecified; Y92.002 Bathroom of unspecified non-institutional (private) residence as the place of occurrence of the external cause
CPT/HCPCS: 71250; 99284; J7512

== ENCOUNTER 2019-10-14 17:36 | Emergency (ER) | payer SELFPAY ==
[2019-10-14 18:36] LABS: Absolute Lymphocytes (CBC) 2.4 K/uL (0.7-4.9); Basophils % 0.7 % (0-1.3); Hematocrit 44.3 % (36.0-45.0); Lymphocytes % 19.5 % (15.3-44.8); MPV 10.5 fL (7.6-11.3); RBC Red Blood Cell Count 5.11 M/uL (3.86-4.86)
[2019-10-14 18:37] LABS: Urine Blood 2+ (NEG); Urine Glucose NEGATIVE (NEG); Urine Protein NEGATIVE (NEG); Urine Specific Gravity >1.030 (1.005-1.030)
[2019-10-14 20:27] LABS: ALT/SGPT 15 U/L (12-78); AST/SGOT 11 U/L (15-37); Albumin 3.3 g/dL (3.4-5.0); Alkaline Phosphatase 68 U/L (45-117); BUN Blood Urea Nitrogen 15 mg/dL (7-18); Bicarbonate 28 mmol/L (21-32); Bilirubin Direct < 0.1 mg/dL (0-0.2); Bilirubin Total 0.2 mg/dL (0.2-1.0); Glucose Level 81 mg/dL (74-106); Lipase 92 U/L (73-393); Potassium 3.9 mmol/L (3.5-5.1); Sodium Level 141 mmol/L (136-145)
--- NOTE | 2019-10-14 20:48 | RAD REPORT ---
EXAM DESCRIPTION: CTAbdomen Pelvis W Contrast - 10/14/2019 8:39 pm CLINICAL HISTORY: Abdominal pain. ABD PAIN COMPARISON: No comparisons TECHNIQUE: Biphasic CT imaging of the abdomen and pelvis was performed with 100 ml non-ionic IV cont rast. All CT scans are performed using dose optimization technique as appropriate and may include automated exposure control or mA/KV adjustment according to patient size. FINDINGS: The lung bases are clear. The liver, spleen, pancreas, adrenal glands and kidneys are within normal limits. Cholecystectomy cli ps. No bowel obstruction, free air, free fluid or abscess. Moderate stool is present in the colon. The ap pendix is normal. No evidence of significant lymphadenopathy. No suspicious bony findings. Posterior disc bulging is present in the lower lumbar spine. IMPRESSION: No acute intra-abdominal or pelvic finding. Moderate stool in the colon.
--- NOTE | 2019-10-14 20:51 | ER ---
Nurse's Notes [facility] Name: Barbara Patton Age: 39 yrs Sex: Female : 1980 Arrival Date: 10/14/2019 Time: 17:39 Bed 27 Private MD: Diagnosis: Lower abdominal pain, unspecified;Constipation;Irregular menstruation, unspecified Presentation: 10/14 17:45 Presenting complaint: Patient states: Had tube's tied 17 years ago, 2 weeks late on my jl7 period, last night started spotting and having RLQ pain. Took a UPT 2 weeks ago and it was negative, haven't taken another one. Transition of care: patient was not received from another setting of care. Onset of symptoms was October 13, 2019. Risk Assessment: Do you want to hurt yourself or someone else? Patient reports no desire to harm self or others. Initial Sepsis Screen: Does the patient meet any 2 criteria? No. Patient's initial sepsis screen is negative. Does the patient have a suspected source of infection? No. Patient's initial sepsis screen is negative. Care prior to arrival: None. 17:45 Method Of Arrival: Ambulatory [facility] 17:45 Acuity: ESTUARDO 3 7 Triage Assessment: 20:07 General: Appears in no apparent distress. uncomfortable, Behavior is calm, cooperative. ls4 Pain: Complains of pain in suprapubic area Pain currently is 4 out of 10 on a pain scale. Neuro: No deficits noted. Cardiovascular: No deficits noted. Respiratory: No deficits noted. GI: No deficits noted. : No deficits noted. Musculoskeletal: No deficits noted. 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 - Coronavirus screen:: The patient has NOT traveled to [place], [place], or [place] in the past 14 days. Proceed with normal triage process as indicated. - Social history:: Smoking status: Patient reports the use of cigarette tobacco products, smokes one pack cigarettes per day. - Ebola Screening: : No symptoms or risks identified at this time. Screenin:00 Abuse screen: Denies threats or abuse. Denies injuries from another. Nutritional ls4 screening: No deficits noted. 18:00 Tuberculosis screening: No symptoms or risk factors identified. Fall Risk None ls4 identified. Assessment: 20:00 Reassessment: Patient appears in no apparent distress at this time. Patient and/or ls4 family updated on plan of care and expected duration. Pain level reassessed. Patient is alert, oriented x 3, equal unlabored respirations, skin warm/dry/pink. 21:04 Reassessment: Patient appears in no apparent distress at this time. Patient and/or ls4 family updated on plan of care and expected duration. Pain level reassessed. Patient is alert, oriented x 3, equal unlabored respirations, skin warm/dry/pink. 22:00 Reassessment: Patient appears in no apparent distress at this time. Patient and/or ls4 family updated on plan of care and expected duration. Pain level reassessed. Patient is alert, oriented x 3, equal unlabored respirations, skin warm/dry/pink. Vital Signs: 17:48 BP 148 / 95; Pulse 82; Resp 17 S; Temp 98(O); Pulse Ox 100% on R/A; Weight 81.65 kg jl7 (R); Height 5 ft. 5 in. (165.10 cm) (R); Pain 5/10; 19:00 BP 146 / 78; Pulse 78; Resp 14; Pulse Ox 100% on R/A; Pain 3/10; ls4 21:00 BP 138 / 74; Pulse 78; Resp 14; Temp 98.1(O); Pulse Ox 100% on R/A; Pain 5/10; ls4 22:00 BP 139 / 74; Pulse 76; Resp 14; Pulse Ox 100% on R/A; Pain 3/10; ls4 17:48 Body Mass Index 29.95 (81.65 kg, 165.10 cm) 7 ED Course: 17:39 Patient arrived in ED. as 17:47 Triage completed. jl7 17:48 Anastasia Mcgee FNP-C [facility] kb 17:48 Shade Johnston MD is Attending Physician. kb 17:48 Arm band placed on right wrist. jl7 18:00 Patient has correct armband on for positive identification. Placed in gown. Bed in low ls4 position. Call light in reach. Side rails up X 1. home maker on. Pulse ox on. NIBP on. Warm blanket given. Pillow given. Diet: Patient is NPO. 18:00 No provider procedures requiring assistance completed. Inserted saline lock: 20 gauge ls4 in right antecubital area, using aseptic technique. 18:02 Christina Alanis, RN is Primary Nurse. ls4 20:25 Radiology exam delayed due to lab results not completed at this time. (BUN/Creatinine). nj 20:40 CT Abd/Pelvis - IV Contrast Only In Process Unspecified. EDMS 23:27 IV discontinued, intact, bleeding controlled, No redness/swelling at site. Pressure ls4 dressing applied. Administered Medications: No medications were administered Outcome: 20:51 Discharge ordered by MD. kb 22:25 Patient left the ED. ls4 23:23 Discharged to home ambulatory, with family. ls4 23:23 Condition: stable 23:23 Discharge instructions given to patient, Instructed on discharge instructions, follow up and referral plans. Demonstrated understanding of instructions, follow-up care, medications. Signatures: Dispatcher [employer] EDMS Anastasia Mcgee, BUSINESS PARTNER-C BUSINESS PARTNER-Kim York Nathan nj Leal, Jahala, CYNTHIA RN jl7 Christina Alanis, RN RN ls4
--- NOTE | 2019-10-14 20:51 | EDPHYS ---
Physician Documentation [facility] Name: Barbara Patton Age: 39 yrs Sex: Female : 1980 Arrival Date: 10/14/2019 Time: 17:39 Bed 27 Private MD: ED Physician Shade Johnston HPI: 10/14 20:48 This 39 yrs old Female presents to ER via Ambulatory with complaints of kb Abdominal Pain. 20:48 The patient presents with abdominal pain right lower quadrant. Onset: The kb symptoms/episode began/occurred yesterday. 20:49 The symptoms do not radiate. Associated signs and symptoms: Pertinent positives: kb vaginal bleeding. The symptoms are described as constant. Modifying factors: The symptoms are alleviated by nothing, the symptoms are aggravated by nothing. Severity of pain: At its worst the pain was moderate in the emergency department the pain is unchanged. The patient has not experienced similar symptoms in the past. The patient has not recently seen a physician. Pt reports she was 2 weeks late on her period. Started having vaginal bleeding last night and RLQ pain so she is concerned that she has an ectopic . Reports she had a tubal ligation 17 years ago. 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 - Coronavirus screen:: The patient has NOT traveled to [place], [place], or [place] in the past 14 days. Proceed with normal triage process as indicated. - Social history:: Smoking status: Patient reports the use of cigarette tobacco products, smokes one pack cigarettes per day. - Ebola Screening: : No symptoms or risks identified at this time. ROS: 20:47 Constitutional: Negative for fever, chills, and weight loss, ENT: Negative for injury, kb pain, and discharge, Neck: Negative for injury, pain, and swelling, Cardiovascular: Negative for chest pain, palpitations, and edema, Respiratory: Negative for shortness of breath, cough, wheezing, and pleuritic chest pain, Back: Negative for injury and pain, : Negative for injury, bleeding, discharge, and swelling, MS/Extremity: Negative for injury and deformity, Skin: Negative for injury, rash, and discoloration, Neuro: Negative for headache, weakness, numbness, tingling, and seizure. 20:47 Abdomen/GI: Positive for abdominal pain. Exam: 20:47 Constitutional: This is a well developed, well nourished patient who is awake, alert, kb and in no acute distress. Head/Face: Normocephalic, atraumatic. Neck: Trachea midline, no thyromegaly or masses palpated, and no cervical lymphadenopathy. Supple, full range of motion without nuchal rigidity, or vertebral point tenderness. No Meningismus. Chest/axilla: Normal chest wall appearance and motion. Nontender with no deformity. No lesions are appreciated. Cardiovascular: Regular rate and rhythm with a normal S1 and S2. No gallops, murmurs, or rubs. Normal PMI, no JVD. No pulse deficits. Respiratory: Lungs have equal breath sounds bilaterally, clear to auscultation and percussion. No rales, rhonchi or wheezes noted. No increased work of breathing, no retractions or nasal flaring. Back: No spinal tenderness. No costovertebral tenderness. Full range of motion. Skin: Warm, dry with normal turgor. Normal color with no rashes, no lesions, and no evidence of cellulitis. MS/ Extremity: Pulses equal, no cyanosis. Neurovascular intact. Full, normal range of motion. Neuro: Awake and alert, GCS 15, oriented to person, place, time, and situation. Cranial nerves II-XII grossly intact. Motor strength 5/5 in all extremities. Sensory grossly intact. Cerebellar exam normal. Normal gait. 20:47 Abdomen/GI: Inspection: abdomen appears normal, Bowel sounds: normal, in all quadrants, Palpation: soft, in all quadrants, moderate abdominal tenderness, in the right lower quadrant. Vital Signs: 17:48 BP 148 / 95; Pulse 82; Resp 17 S; Temp 98(O); Pulse Ox 100% on R/A; Weight 81.65 kg jl7 (R); Height 5 ft. 5 in. (165.10 cm) (R); Pain 5/10; 19:00 BP 146 / 78; Pulse 78; Resp 14; Pulse Ox 100% on R/A; Pain 3/10; ls4 21:00 BP 138 / 74; Pulse 78; Resp 14; Temp 98.1(O); Pulse Ox 100% on R/A; Pain 5/10; ls4 22:00 BP 139 / 74; Pulse 76; Resp 14; Pulse Ox 100% on R/A; Pain 3/10; ls4 17:48 Body Mass Index 29.95 (81.65 kg, 165.10 cm) jl7 MDM: 17:49 Patient medically screened. kb 20:47 Data reviewed: vital signs, nurses notes. Data interpreted: Pulse oximetry: on room air kb is 100 %. Interpretation: normal. 20:50 Counseling: I had a detailed discussion with the patient and/or guardian regarding: the kb historical points, exam findings, and any diagnostic results supporting the discharge/admit diagnosis, lab results, radiology results, the need for outpatient follow up, a family practitioner, to return to the emergency department if symptoms worsen or persist or if there are any questions or concerns that arise at home. 10/14 18:02 Order name: Basic Metabolic Panel; Complete Time: 20:32 kb 10/14 18:02 Order name: CBC with Diff; Complete Time: 18:46 kb 10/14 18:02 Order name: Hepatic Function; Complete Time: 20:32 kb 10/14 18:02 Order name: Lipase; Complete Time: 20:32 kb 10/14 18:03 Order name: Urine --Ancillary (enter results); Complete Time: 18:46 kb 10/14 18:02 Order name: IV Saline Lock; Complete Time: 18:28 kb 10/14 18:02 Order name: Labs collected and sent; Complete Time: 18:28 kb 10/14 18:02 Order name: CT Abd/Pelvis - IV Contrast Only; Complete Time: 20:50 kb 10/14 18:03 Order name: NPO; Complete Time: 18:28 ls4 10/14 18:03 Order name: Urine Dipstick-Ancillary (obtain specimen); Complete Time: 18:30 ls4 10/14 18:03 Order name: Urine Dipstick--Ancillary (enter results); Complete Time: 18:46 kb 10/14 18:44 Order name: Labs - recollect needed: aborh, c7 recollect. bladimir pt.; Complete Time: bd 20:03 Administered Medications: No medications were administered Disposition: 10/15 07:37 Co-signature as Attending Physician, Shade Johnston MD I agree with the assessment and michael plan of care. Disposition: 10/14/19 20:51 Discharged to Home. Impression: Lower abdominal pain, unspecified, Constipation, Irregular menstruation, unspecified. - Condition is Stable. - Discharge Instructions: Constipation, Adult, Ninm-ab-Aoal, Abdominal Pain, Adult, [id number]. - Prescriptions for Diclofenac Sodium 75 mg Oral Tablet, Delayed Release (E.C.) - take 1 tablet by ORAL route 2 times per day As needed; 30 tablet. - Medication Reconciliation Form, Thank You Letter, Antibiotic Education, Prescription Opioid Use form. - Follow up: Emergency Department; When: As needed; Reason: Worsening of condition. Follow up: Private Physician; When: 2 - 3 days; Reason: Recheck today's complaints, Continuance of care, Re-evaluation by your physician. Signatures: Dispatcher [employer] [facility] Anastasia Mcgee, NICOLE COORDINATOR OF GENETIC SERVICES-Tiera Clinton Corey, MD MD cha Leal, Jahala RN RN jl7 Christina Alanis, RN RN ls4 Corrections: (The following items were deleted from the chart) 10/14 20:17 18:17 ABO/RH TYPING+[id number] ordered. [facility] 22:25 20:51 10/14/2019 20:51 Discharged to Home. Impression: Lower abdominal pain, ls4 unspecified; Constipation; Irregular menstruation, unspecified. Condition is Stable. Forms are Medication Reconciliation Form, Thank You Letter, Antibiotic Education, Prescription Opioid Use. Follow up: Emergency Department; When: As needed; Reason: Worsening of condition. Follow up: Private Physician; When: 2 - 3 days; Reason: Recheck today's complaints, Continuance of care, Re-evaluation by your physician. kb
[2019-10-15 11:12] VITALS: BP 148/95; TEMP 98; O2SAT 100
== END 2019-10-14 22:25 | disposition home or self-care (01) ==
LOC: ER 17:36
DX: N92.6 Irregular menstruation, unspecified (principal); K59.00 Constipation, unspecified; I10 Essential (primary) hypertension; F17.210 Nicotine dependence, cigarettes, uncomplicated
CPT/HCPCS: 36415; 74177; 80048; 80076; 81003; 81025; 83690; 85025; 99284; Q9967

== ENCOUNTER 2020-03-01 19:32 | Emergency (ER) | payer SELFPAY ==
[2020-03-01] MEDS ORDERED: ONDANSETRON 4 MG/2 ML VIAL ONE (20:47)
[2020-03-01] MEDS ORDERED: NA CHLORIDE 0.9% 1,000 ML ONE (20:47)
[2020-03-01 21:02] LABS: Absolute Lymphocytes (CBC) 2.3 K/uL (0.7-4.9); Basophils % 0.8 % (0-1.3); Hematocrit 44.1 % (36.0-45.0); MPV 9.9 fL (7.6-11.3); RBC Red Blood Cell Count 5.02 M/uL (3.86-4.86)
[2020-03-01 21:17] LABS: ALT/SGPT 18 U/L (12-78); AST/SGOT 9 U/L (15-37); Albumin 3.6 g/dL (3.4-5.0); Alkaline Phosphatase 61 U/L (45-117); BUN Blood Urea Nitrogen 12 mg/dL (7-18); Bicarbonate 27 mmol/L (21-32); Bilirubin Direct < 0.1 mg/dL (0-0.2); Bilirubin Total 0.3 mg/dL (0.2-1.0); Glucose Level 82 mg/dL (74-106); Lipase 92 U/L (73-393); Potassium 3.9 mmol/L (3.5-5.1); Protein, Total 7.5 g/dL (6.4-8.2); Sodium Level 142 mmol/L (136-145)
[2020-03-01 21:22] LABS: Urine Blood NEGATIVE (NEG); Urine Glucose NEGATIVE (NEG); Urine Protein TRACE (NEG); Urine pH 8.5 (5.0-7.0)
--- NOTE | 2020-03-01 23:00 | ER ---
Nurse's Notes [facility] Name: Barbara Patton Age: 39 yrs Sex: Female : 1980 Arrival Date: 03/01/2020 Time: 19:34 Bed 14 Private MD: Diagnosis: Unspecified ovarian cysts;Enteritis, nonspecific Presentation: 03/01 19:36 Chief complaint: Patient states: Right sided abd pain for 3 days. + nausea. Fever 100.5 ll1 at home. Coronavirus screen: Proceed with normal triage. Patient reports a cough. Patient denies shortness of breath or difficulty breathing. Patient denies measured and/or subjective temperature greater than 100.4F prior to today's visit. Patient denies travel on a cruise ship or to a country the [facility] currently lists as an affected area. Patient denies contact with known and/or suspected case of COVID-19. "smokers cough". Ebola Screen: Patient denies travel to an Ebola-affected area in the 21 days before illness onset. Initial Sepsis Screen: Does the patient meet any 2 criteria? HR > 90 bpm. No. Patient's initial sepsis screen is negative. Does the patient have a suspected source of infection? Yes: Acute abdominal pain. Risk Assessment: Do you want to hurt yourself or someone else? Patient reports no desire to harm self or others. Onset of symptoms was February 27, 2020. 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 - Social history:: Smoking status: Patient reports the use of cigarette tobacco products, smokes one-half pack cigarettes per day, Patient/guardian denies using alcohol, street drugs. - Family history:: not pertinent. - Hospitalizations: : No recent hospitalization is reported. Screenin:45 Abuse screen: Denies threats or abuse. Denies injuries from another. Nutritional ao screening: No deficits noted. Tuberculosis screening: No symptoms or risk factors identified. Fall Risk None identified. Assessment: 20:44 General: Appears in no apparent distress. comfortable, obese, well groomed, well ao developed, Behavior is calm, cooperative, appropriate for age. Pain: Complains of pain in abdomen Pain does not radiate. Pain currently is 6 out of 10 on a pain scale. Neuro: Level of Consciousness is awake, alert, obeys commands, Oriented to person, place, time, situation, Appropriate for age Moves all extremities. Full function Speech is normal. Cardiovascular: Heart tones S1 S2. Respiratory: Airway is patent Respiratory effort is even, unlabored, Respiratory pattern is regular, symmetrical. GI: Abdomen is obese, Bowel sounds present X 4 quads. Abd is soft and non tender X 4 quads. : No signs and/or symptoms were reported regarding the genitourinary system. EENT: No signs and/or symptoms were reported regarding the EENT system. Derm: Skin is intact, Skin is pink, warm \\T\\ dry. normal, Skin temperature is warm. Musculoskeletal: Circulation, motion, and sensation intact. Range of motion: intact in all extremities. 22:30 Reassessment: Patient appears in no apparent distress at this time. Patient and/or ao family updated on plan of care and expected duration. Pain level reassessed. Waiting on dispo prders. 23:09 Reassessment: Patient appears in no apparent distress at this time. DC home. Pt agrees ao with POC and to follow up with PCP. Vital Signs: 19:36 BP 137 / 86; Pulse 100; Resp 18; Temp 98.3; Pulse Ox 100% ; Pain 8/10; ll1 22:25 BP 132 / 78; Pulse 82; Resp 16; Pulse Ox 98% ; ao ED Course: 19:34 Patient arrived in ED. cl3 19:39 Triage completed. ll1 19:39 Arm band placed on. ll1 20:04 Cristopher Worthington MD is Attending Physician. rn 20:20 Cristopher Worthington MD is Attending Physician. rn 20:27 Jhonatan Patton RN is Primary Nurse. ao 20:30 Inserted saline lock: 20 gauge in right antecubital area, using aseptic technique. ao Blood collected. 20:46 Patient has correct armband on for positive identification. finger cobbler on. Pulse ao ox on. 21:47 CT Abd/Pelvis - IV Contrast Only In Process Unspecified. EDMS 23:09 No provider procedures requiring assistance completed. IV discontinued, intact, ao bleeding controlled, No redness/swelling at site. Pressure dressing applied. 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 ao Outcome: 22:59 Discharge ordered by MD. rn 23:09 Discharged to home ambulatory. ao 23:09 Condition: stable 23:09 Discharge instructions given to patient, Instructed on discharge instructions, follow up and referral plans. Demonstrated understanding of instructions, follow-up care, medications, Prescriptions given X 1. 23:10 Patient left the ED. ao Signatures: Dispatcher [employer] EDMS Cristopher Worthington MD MD rn Ortiz, Alex, RN RN ao Lewis, Charde cl3 Lupe Del Cid RN RN ll1
--- NOTE | 2020-03-01 23:00 | EDPHYS ---
Physician Documentation [facility] Name: Barbara Patton Age: 39 yrs Sex: Female : 1980 Arrival Date: 03/01/2020 Time: 19:34 Bed 14 Private MD: ED Physician Cristopher Worthington HPI: 03/01 20:42 This 39 yrs old Female presents to ER via Ambulatory with complaints of rn Abdominal Pain, Fever. 20:42 The patient reports fever, that was measured at 100.4 degrees Fahrenheit. Onset: The rn symptoms/episode began/occurred 3 day(s) ago. Modifying factors: there are no obvious modifying factors. Associated signs and symptoms: Pertinent positives: abdominal pain, nausea, Pertinent negatives: altered mental status, diarrhea, hemoptysis, skin rash. Severity of symptoms: At their worst the symptoms were mild in the emergency department the symptoms are unchanged. The patient has not experienced similar symptoms in the past. The patient has not recently seen a physician. Reports RLQ abd pain with low grade fever, began 3 days ago, + diarrhea, non-bloody, + nausea without vomiting. Still has appendix. NO trauma. No sick contacts. . 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 - Social history:: Smoking status: Patient reports the use of cigarette tobacco products, smokes one-half pack cigarettes per day, Patient/guardian denies using alcohol, street drugs. - Family history:: not pertinent. - Hospitalizations: : No recent hospitalization is reported. 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 Exam: 20:42 Constitutional: This is a well developed, well nourished patient who is awake, alert, rn and in no acute distress. Head/Face: Normocephalic, atraumatic. Cardiovascular: Regular rate and rhythm. No pulse deficits. Respiratory: No increased work of breathing, no retractions or nasal flaring. Abdomen/GI: soft, mild tenderness RLQ, no rebound, no masses Skin: Warm, dry MS/ Extremity: Pulses equal, no cyanosis. Neurovascular intact. Full, normal range of motion. Equal circumference. Neuro: Awake and alert, GCS 15 Vital Signs: 19:36 BP 137 / 86; Pulse 100; Resp 18; Temp 98.3; Pulse Ox 100% ; Pain 8/10; ll1 22:25 BP 132 / 78; Pulse 82; Resp 16; Pulse Ox 98% ; ao MDM: 20:04 Patient medically screened. rn 22:58 Differential diagnosis: viral Infection, bacterial infection, UTI, gastroenteritis. rn Data reviewed: vital signs, nurses notes, lab test result(s), radiologic studies, CT scan, and as a result, I will discharge patient. Counseling: I had a detailed discussion with the patient and/or guardian regarding: the historical points, exam findings, and any diagnostic results supporting the discharge/admit diagnosis, lab results, radiology results, the need for outpatient follow up, to return to the emergency department if symptoms worsen or persist or if there are any questions or concerns that arise at home. Special discussion: Based on the patient's Hx, exam, and Dx evaluation, there is no indication for emergent surgery or inpatient Tx. It is understood by the patient/guardian that if the Sx's persist or worsen they need to return immediately for re-evaluation. I discussed with the patient/guardian in detail that at this point there is no indication for admission to the hospital. It is understood, however, that if the symptoms persist or worsen the patient needs to return immediately for re-evaluation. ED course: CT show normal appendix, most likely viral syndrome, will dc home with prn zofran.. 03/01 20:19 Order name: Urine Dipstick--Ancillary (enter results); Complete [facility]: 21:37 [facility] 03/01 20:19 Order name: Urine --Ancillary (enter results); Complete Time: 21:37 [facility] 03/01 20:24 Order name: Basic Metabolic Panel; Complete Time: 21:19 03/01 20:24 Order name: CBC with Diff; Complete Time: 21:19 03/01 20:24 Order name: Hepatic Function; Complete Time: 21:19 03/01 20:24 Order name: Lipase; Complete Time: 21:19 03/01 20:24 Order name: IV Saline Lock; Complete Time: 20:44 rn 03/01 20:24 Order name: Flu; Complete Time: 21:37 03/01 21:19 Order name: CT Abd/Pelvis - IV Contrast Only 03/01 20:24 Order name: Labs collected and sent; Complete Time: 20:44 rn Administered Medications: 20:43 Drug: NS 0.9% 1000 ml Route: IV; Rate: 1000 ml; Site: right antecubital; ao 23:02 Follow up: IV Status: Completed infusion; IV Intake: 100ml ao 20:43 Drug: Zofran (Ondansetron) 4 mg Route: IVP; Site: right antecubital; ao 23:02 Follow up: Response: No adverse reaction ao 21:02 CANCELLED (Duplicate Order): Zithromax 1 grams PO once rn 21:02 CANCELLED (Duplicate Order): Flagyl 2 grams PO once rn 21:03 CANCELLED (Duplicate Order): Rocephin (cefTRIAXone) 250 mg IM once rn Disposition: 03/01/20 22:59 Discharged to Home. Impression: Unspecified ovarian cysts, Enteritis, nonspecific. - Condition is Stable. - Discharge Instructions: Diarrhea, Adult, Ovarian Cyst, Viral Gastroenteritis, Adult. - Prescriptions for Zofran ODT 4 mg Oral tablet,disintegrating - place 1 tablet by TRANSLINGUAL route every 8 hours As needed; 20 tablet. - Medication Reconciliation Form, Thank You Letter, Antibiotic Education, Prescription Opioid Use form. - Follow up: Private Physician; When: As needed; Reason: Recheck today's complaints, Re-evaluation by your physician. - Problem is new. - Symptoms have improved. Signatures: Dispatcher [employer] EDMS Cristopher Worthington MD MD rn Ortiz, Alex, RN RN Lupe Andersen RN RN ll1 Corrections: (The following items were deleted from the chart) 20:44 20:42 Constitutional: Negative for weight loss, Eyes: Negative for injury, pain, rn redness, and discharge, Neck: Negative for injury, pain, and swelling, Cardiovascular: Negative for chest pain, palpitations, and edema, Respiratory: Negative for shortness of breath, cough, wheezing, and pleuritic chest pain, Abdomen/GI: + abd pain and nausea, + diarrhea MS/Extremity: Negative for injury and deformity, Skin: Negative for injury, rash, and discoloration, Neuro: Negative for headache, weakness, numbness, tingling, and seizure, rn 21: 21:01 Zithromax 1 grams PO once ordered. rn rn 21: 21:01 Flagyl 2 grams PO once ordered. rn rn 21:03 21:01 Rocephin (cefTRIAXone) 250 mg IM once ordered. rn rn 23:10 22:59 03/01/2020 22:59 Discharged to Home. Impression: Unspecified ovarian cysts; ao Enteritis, nonspecific. Condition is Stable. Forms are Medication Reconciliation Form, Thank You Letter, Antibiotic Education, Prescription Opioid Use. Follow up: Private Physician; When: As needed; Reason: Recheck today's complaints, Re-evaluation by your physician. Problem is new. Symptoms have improved. rn
[2020-03-01 23:23] VITALS: TEMP 98.3
[2020-03-01 23:31] VITALS: BP 132/78; O2SAT 98
--- NOTE | 2020-03-02 20:39 | RAD REPORT ---
EXAM DESCRIPTION: CT Abdomen and Pelvis With Intravenous Contrast CLINICAL HISTORY: The patient is 39 years old and is Female; RLQ abd pain, rule out appendicitis TECHNIQUE: Axial computed tomography images of the abdomen and pelvis with intravenous contrast. S agittal and coronal reformatted images were created and reviewed. This CT exam was performed using one or more of the following dose reduction techniques: automated exposure control, adjustment of t he mA and/or kV according to patient size, and/or use of iterative reconstruction technique. COMPARISON: No relevant prior studies available. FINDINGS: LUNG BASES: Unremarkable. No mass. No consolidation. ABDOMEN: LIVER: Unremarkable. No mass. GALLBLADDER AND BILE DUCTS: Surgical clips are present in the right upper quadrant, consistent wi th previous cholecystectomy. PANCREAS: No ductal dilation. No mass. SPLEEN: Unremarkable. ADRENALS: Unremarkable. No mass. KIDNEYS AND URETERS: Unremarkable. The kidneys enhance symmetrically. No obstructing renal or ure teral calculus is seen. No hydronephrosis or hydroureter. No perinephric fluid or stranding. STOMACH AND BOWEL: Stomach is distended with food contents. The small bowel is normal in caliber . Stool is present throughout colon. There is no mucosal thickening or evidence of bowel obstruction. PELVIS: APPENDIX: The appendix is normal in caliber without surrounding inflammation. BLADDER: Unremarkable. No mass. REPRODUCTIVE: A 3.7 cm left ovarian cyst is present. A somewhat oblong 5.8 cm right ovarian cyst is present. ABDOMEN and PELVIS: INTRAPERITONEAL SPACE: Unremarkable. No free air. No significant fluid collection. BONES/JOINTS: No acute fracture. SOFT TISSUES: The soft tissues are normal. VASCULATURE: Unremarkable. No abdominal aortic aneurysm. LYMPH NODES: Unremarkable. No enlarged lymph nodes. IMPRESSION: 1. Bilateral ovarian cysts. Recommend follow-up pelvic US in 6-12 weeks. Reference: J Am Claudette Radiol 2013;10:[id number] 2. Normal appendix. No renal or ureteral calculi. Electronically signed by: Renee Alvarez MD 03/01/2020 10:02 PM CDT Due to temporary technical issues with the PACS/Fluency reporting system, reports are being signed by the in house radiologist without review as a courtesy to ensure prompt reporting. The interpreting r adiologist is fully responsible for the content of the report.
== END 2020-03-01 23:10 | disposition home or self-care (01) ==
LOC: ER 19:32
DX: K52.9 Noninfective gastroenteritis and colitis, unspecified (principal); N83.209 Unspecified ovarian cyst, unspecified side; I10 Essential (primary) hypertension; F17.210 Nicotine dependence, cigarettes, uncomplicated
CPT/HCPCS: 36415; 74177; 80048; 80076; 81003; 81025; 83690; 85025; 87804; 96361; 96374; 99284; J2405; J7030; Q9967

== ENCOUNTER 2023-04-11 19:04 | Emergency (ER) | payer OTHER, SELFPAY ==
[2023-04-11] MEDS ORDERED: IBUPROFEN 200 MG TAB PO ONE ×2 (20:30→20:34)
--- NOTE | 2023-04-11 21:23 | RAD REPORT ---
EXAM DESCRIPTION: US - Extremity Venous Uni Ltd - 04/11/2023 9:17 pm CLINICAL HISTORY: Pain COMPARISON: None. TECHNIQUE: Real-time sonographic evaluation of the left lower extremity deep venous system was perfo rmed. FINDINGS: Normal compressibility, flow augmentation, phasic flow and spontaneous flow is identified in the left lower extremity deep venous system. No intraluminal filling defects seen. IMPRESSION: No DVT in the left lower extremity.
--- NOTE | 2023-04-11 21:31 | ER ---
Nurse's Notes [facility] Name: Barbara Patton Age: 42 yrs Sex: Female : 1980 Arrival Date: 04/11/2023 Time: 19:04 Bed 10 Private MD: Diagnosis: Pain in left leg Presentation: 04/11 19:15 Chief complaint: Patient states: left thigh pain onset Saturday morning after work. Pt cm10 states that she was doing a lot of squats at work and that is when the pain started. Coronavirus screen: Vaccine status: Patient reports being unvaccinated. Ebola Screen: No symptoms or risks identified at this time. Initial Sepsis Screen: Does the patient meet any 2 criteria? No. Patient's initial sepsis screen is negative. Does the patient have a suspected source of infection? No. Patient's initial sepsis screen is negative. Risk Assessment: Do you want to hurt yourself or someone else? Patient reports no desire to harm self or others. Onset of symptoms was April 08, 2023. 19:15 Method Of Arrival: Ambulatory cm10 19:15 Acuity: ESTUARDO 4 cm10 Triage Assessment: 19:17 General: Appears in no apparent distress. uncomfortable, Behavior is calm, cooperative. cm10 Pain: Complains of pain in left leg. 22:03 Injury Description: No Injury. cm10 Historical: - Allergies: 19:17 NKA; cm10 - PMHx: 19:17 Asthma; Bronchitis; chronic back pain; Hypertension; cm10 - Immunization history:: Adult Immunizations unknown. - Social history:: Smoking status: Patient reports the use of cigarette tobacco products, smokes one pack cigarettes per day. Screenin:30 [facility] ED Fall Risk Assessment (Adult) Score/Fall Risk Level 0 - 2 = Low Risk. Abuse eh3 screen: Denies threats or abuse. Denies injuries from another. Nutritional screening: No deficits noted. Tuberculosis screening: No symptoms or risk factors identified. Assessment: 19:30 General: Appears in no apparent distress. uncomfortable. General: Behavior is calm, eh3 cooperative, appropriate for age. Pain: Complains of pain in lateral aspect of left thigh. Neuro: Level of Consciousness is awake, alert, obeys commands, Oriented to person, place, time, situation. Cardiovascular: Capillary refill < 3 seconds Patient's skin is warm and dry. Respiratory: Airway is patent Respiratory effort is even, unlabored, Respiratory pattern is regular, symmetrical. GI: Abdomen is round non-distended. Derm: Skin is pink, warm \T\ dry. Musculoskeletal: Circulation, motion, and sensation intact. 20:30 Reassessment: Patient appears in no apparent distress at this time. Patient and/or eh3 family updated on plan of care and expected duration. Pain level reassessed. Patient is alert, oriented x 3, equal unlabored respirations, skin warm/dry/pink. Vital Signs: 19:15 BP 137 / 106; Pulse 100; Resp 18; Temp 98.4; Pulse Ox 99% on R/A; cm10 ED Course: 19:09 Patient arrived in ED. es 19:17 Triage completed. cm10 19:17 Arm band placed on Patient placed in waiting room. cm10 19:30 Patient has correct armband on for positive identification. Bed in low position. Call eh3 light in reach. Side rails up X2. Adult w/ patient. 19:32 Shade Olguin PA is PHCP. cp 19:32 Pearl Mcgill MD is Attending Physician. cp 20:06 Nancy Washburn, CYNTHIA is Primary Nurse. eh3 21:19 US Extremity Venous Unilateral Ltd In Process Unspecified. EDVA 21:35 Report given to Augusta Del Cid RN. 3 22:03 Provided Education on: N/A. cm10 22:03 No provider procedures requiring assistance completed. Patient did not have IV access cm10 during this emergency room visit. Administered Medications: 20:23 Drug: Ibuprofen PO 800 mg Route: PO; 3 21:45 Follow up: Response: No adverse reaction 3 Medication: 22:03 VIS not applicable for this client. cm10 Outcome: 21:31 Discharge ordered by . cp 22:03 Discharged to home ambulatory, with family. cm10 22:03 Condition: good 22:03 Discharge instructions given to patient, Instructed on discharge instructions, follow up and referral plans. medication usage, Demonstrated understanding of instructions, follow-up care, medications, Prescriptions given X 1. 22:04 Patient left the ED. cm10 Signatures: Dispatcher [employer] EDVA Leslie Patel Shade Olguin PA PA Nancy Melendez, CYNTHIA RN 3 Gabriela Lagunas RN RN cm10
--- NOTE | 2023-04-11 21:31 | EDPHYS ---
Physician Documentation [facility] Name: Barbara Patton Age: 42 yrs Sex: Female : 1980 Arrival Date: 04/11/2023 Time: 19:04 Bed 10 Private MD: ED Physician Pearl Mcgill HPI: 04/11 20:30 This 42 yrs old Female presents to ER via Ambulatory with complaints of Thigh Injury. cp 20:30 Patient is a 42-year-old female with past medical history significant for hypertension, cp chronic back pain, asthma. Patient presents to the emergency department with complaints of left leg pain with the left thigh area the most painful area. Patient denies any specific injuries but states that her job requires her to do a lot of bending and squatting and believes she injured her leg performing her duties at work. Patient states she started having pain since this past Saturday. Historical: - Allergies: 19:17 NKA; cm10 - PMHx: 19:17 Asthma; Bronchitis; chronic back pain; Hypertension; cm10 - Immunization history:: Adult Immunizations unknown. - Social history:: Smoking status: Patient reports the use of cigarette tobacco products, smokes one pack cigarettes per day. ROS: 20:35 MS/extremity: Positive for pain, tenderness, of the left leg. cp 20:35 Constitutional: Negative for body aches, chills, fever, poor PO intake. cp 20:35 Cardiovascular: Negative for chest pain, edema, palpitations. 20:35 Respiratory: Negative for cough, shortness of breath, wheezing. 20:35 Abdomen/GI: Negative for abdominal pain, nausea, vomiting, and diarrhea. 20:35 Neuro: Negative for altered mental status, dizziness, headache, weakness. 20:35 All other systems are negative. Exam: 20:40 Constitutional: The patient appears in no acute distress, alert, awake, non-toxic, well cp developed, well nourished, overweight 20:40 Head/Face: Normocephalic, atraumatic. cp 20:40 Eyes: Periorbital structures: appear normal, Conjunctiva: normal, no exudate, no injection, Sclera: no appreciated abnormality, Lids and lashes: appear normal, bilaterally. 20:40 ENT: External ear(s): are unremarkable, Nose: is normal, Mouth: Lips: moist, Oral mucosa: pink and intact, moist, Posterior pharynx: is normal, airway is patent, no erythema, no exudate. 20:40 Chest/axilla: Inspection: normal. 20:40 Cardiovascular: Rate: tachycardic, Rhythm: regular, Pulses: Pulses are 2+ in left dorsalis pedis artery. Edema: is not appreciated, JVD: is not appreciated. 20:40 Respiratory: the patient does not display signs of respiratory distress, Respirations: normal, no use of accessory muscles, no retractions, labored breathing, is not present, Breath sounds: are clear throughout, no decreased breath sounds, no stridor, no wheezing. 20:40 Abdomen/GI: Inspection: abdomen appears normal. 20:40 Musculoskeletal/extremity: Extremities: grossly normal except: noted in the left leg: pain, tenderness, There is no evidence of decreased ROM, ecchymosis, swelling, ROM: full active range of motion, in the left hip and left knee and left ankle, the left leg Sensation intact. Vital Signs: 19:15 BP 137 / 106; Pulse 100; Resp 18; Temp 98.4; Pulse Ox 99% on R/A; cm10 MDM: 19:43 Patient medically screened. 21:00 Differential diagnosis: muscle strain, DVT, cellulitis, fracture. 21:30 Data reviewed: vital signs, nurses notes, radiologic studies, ultrasound. 21:30 I considered the following discharge prescriptions or medication management in the emergency department Medications were administered in the Emergency Department. See MAR. Counseling: I had a detailed discussion with the patient and/or guardian regarding: the historical points, exam findings, and any diagnostic results supporting the discharge/admit diagnosis, radiology results, the need for outpatient follow up, a family practitioner, to return to the emergency department if symptoms worsen or persist or if there are any questions or concerns that arise at home. Response to treatment: the patient's symptoms have mildly improved after treatment, and as a result, I will discharge patient. 04/11 20:18 Order name: US Extremity Venous Unilateral Ltd; Complete Time: 21:30 cp 04/11 21:30 Interpretation: Report reviewed. Administered Medications: 20:23 Drug: Ibuprofen PO 800 mg Route: PO; eh3 21:45 Follow up: Response: No adverse reaction eh3 Disposition Summary: 04/11/23 21:31 Discharge Ordered Location: Home cp Problem: new cp Symptoms: have improved cp Condition: Stable cp Diagnosis - Pain in left leg cp Followup: cp - With: Private Physician - When: 2 - 3 days - Reason: Worsening of condition Discharge Instructions: - Discharge Summary Sheet cp - Musculoskeletal Pain cp - How to Use Cold Therapy cp - Heat Therapy cp Forms: - Medication Reconciliation Form cp - Thank You Letter cp - Antibiotic Education cp - Prescription Opioid Use cp - Patient Portal Instructions cp - Work release form cm10 Prescriptions: - Naprosyn 500 mg Oral Tablet - take 1 tablet by ORAL route 2 times per day take with food; 20 tablet; Refills: cp 0, Product Selection Permitted Signatures: Dispatcher [employer] EDMS Shade Olguin PA PA cp Hall, Erin RN RN 3 Gabriela Lagunas RN RN cm10
[2023-04-11 22:48] VITALS: BP 137/106; TEMP 98.4; O2SAT 99
== END 2023-04-11 22:04 | disposition home or self-care (01) ==
LOC: ER 19:04
DX: M79.652 Pain in left thigh (principal); F17.210 Nicotine dependence, cigarettes, uncomplicated
CPT/HCPCS: 93971; 99283

== ENCOUNTER 2024-06-01 01:08 | Emergency (ER) | payer OTHER ==
[2024-06-01] MEDS ORDERED: predniSONE 20 MG TAB ONE (01:37)
[2024-06-01] MEDS ORDERED: ALBUTEROL 2.5 MG/3 ML NEB SOL ONE (01:37)
[2024-06-01] MEDS ORDERED: IPRATROPIUM BROM 0.5MG/2.5ML ONE (01:37)
[2024-06-01 02:14] LABS: Absolute Eosinophils 0.2 K/uL (0-0.5); Absolute Lymphocytes (CBC) 1.5 K/uL (0.7-4.9); Basophils % 0.3 % (0-1.3); Eosinophils % 1.8 % (0-4.4); Hematocrit 39.1 % (36.0-45.0); Hemoglobin 12.3 g/dL (12.0-15.0); MCHC 31.5 g/dL (32.0-36.0); MCV 82.5 fL (80-100); MPV 8.6 fL (7.6-11.3); Monocytes % 7.6 % (3.3-12.3); Neutrophils % 78.3 % (41.7-73.7); Nucleated Red Blood Cells % 0.1 % (0-0); Platelets 263 thou/uL (152-406); RBC Red Blood Cell Count 4.74 M/uL (3.86-4.86); Red Cell Distribution Width 16.3 % (12.1-15.2)
[2024-06-01 02:31] LABS: ALT/SGPT 45 U/L (13-56); AST/SGOT 19 U/L (15-37); Albumin 3.2 g/dL (3.4-5.0); Albumin/Globulin Ratio 0.8 (1.1-1.8); Alkaline Phosphatase 73 U/L (45-117); Anion Gap 8.7 mEq/L (5.0-15.0); BUN Blood Urea Nitrogen 10 mg/dL (7-18); Bicarbonate 28 mEq/L (21-32); Bilirubin Total 0.3 mg/dL (0.2-1.0); Globulin 4.1 g/dL (2.3-3.5); Glomerular Filtration Rate 98 ml/min (=/>90); Glucose Level 111 mg/dL (74-106); Magnesium 1.9 mg/dL (1.6-2.4); NT PRO-BNP 93 pg/mL (<125); Potassium 3.7 mEq/L (3.5-5.1); Protein, Total 7.3 g/dL (6.4-8.2); Sodium Level 140 mEq/L (136-145)
[2024-06-01 02:45] LABS: Bilirubin Direct < 0.2 mg/dL (0-0.2); Bilirubin Indirect, Calculated 0.1 mg/dL (0.2-0.8)
--- NOTE | 2024-06-01 03:01 | EDPHYS ---
Physician Documentation [facility] Name: Barbara Patton Age: 43 yrs Sex: Female : 1980 Arrival Date: 06/01/2024 Time: 01:08 Bed 5 Private MD: ED Physician Chaparro José HPI: 06/01 02:20 This 43 yrs old Female presents to ER via Ambulatory with complaints of Asthma rt Exacerbation. 02:20 Patient with history of asthma presents to the ED with wheezing, difficulty breathing rt starting on Saturday. States that the symptoms have worsened today. Denies other acute complaints at this time, symptoms are moderate in severity, no other aggravating or alleviating factors.. 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 - Infectious Disease History:: Denies. - Social history:: Smoking status: Patient reports the use of cigarette tobacco products. - Family history:: not pertinent. ROS: 02:20 Constitutional: Negative for fever, chills, and weight loss, Cardiovascular: Negative rt for chest pain, palpitations, and edema, Abdomen/GI: Negative for abdominal pain, nausea, vomiting, diarrhea, and constipation, MS/Extremity: Negative for injury and deformity, Skin: Negative for injury, rash, and discoloration, Neuro: Negative for headache, weakness, numbness, tingling, and seizure, 02:20 Respiratory: Positive for cough, shortness of breath, wheezing, Exam: 02:20 Constitutional: This is a well developed, well nourished patient who is awake, alert, rt and in no acute distress. Head/Face: Normocephalic, atraumatic. Chest/axilla: Normal chest wall appearance and motion. Nontender with no deformity. No lesions are appreciated. Cardiovascular: Regular rate and rhythm with a normal S1 and S2. No gallops, murmurs, or rubs. Normal PMI, no JVD. No pulse deficits. Abdomen/GI: Soft, non-tender, with normal bowel sounds. No distension or tympany. No guarding or rebound. No evidence of tenderness throughout. Skin: Warm, dry with normal turgor. Normal color with no rashes, no lesions, and no evidence of cellulitis. MS/ Extremity: Pulses equal, no cyanosis. Neurovascular intact. Full, normal range of motion. Neuro: Awake and alert, GCS 15, oriented to person, place, time, and situation. Cranial nerves II-XII grossly intact. Motor strength 5/5 in all extremities. Sensory grossly intact. Cerebellar exam normal. Normal gait. 02:20 ECG was reviewed by the Attending Physician. 02:20 Respiratory: Wheezes, diminished breath sounds heard on all lung mayes, no respiratory distress, Vital Signs: 01:41 BP 164 / 86; Pulse 111; Resp 20; Temp 98.6; Pulse Ox 95% on R/A; Pain 0/10; bm8 02:31 BP 131 / 87; Pulse 107; Resp 20; Temp 98.6; Pulse Ox 97% ; Weight 99.79 kg; Height 5 bm8 ft. 7 in. ; Pain 0/10; 03:16 BP 118 / 54; Pulse 91; Resp 17; Temp 98.6; Pulse Ox 99% on R/A; Pain 0/10; bm8 02:31 Body Mass Index 34.46 (99.79 kg, 170.18 cm) bm8 01:41 Pain Scale: Adult bm8 02:31 Pain Scale: Adult bm8 03:16 Pain Scale: Adult bm8 [place] Coma Score: 02:31 Eye Response: spontaneous(4). Motor Response: obeys commands(6). Verbal Response: bm8 oriented(5). Total: 15. 03:16 Eye Response: spontaneous(4). Motor Response: obeys commands(6). Verbal Response: bm8 oriented(5). Total: 15. MDM: 01:22 Patient medically screened. rt 03:04 Differential diagnosis: Asthma, pneumonia. Data reviewed: vital signs, nurses notes, rt lab test result(s), EKG, radiologic studies. I considered the following discharge prescriptions or medication management in the emergency department Medications were administered in the Emergency Department. See MAR. Independent interpretation of the following test(s) in the Emergency Department X-Ray: My interpretation is No consolidation, edema seen on my interpretation of x-ray images. Test considered but Not performed: CT: Low suspicion for pulmonary embolism, CT angiogram not indicated. Care significantly affected by the following chronic conditions: Asthma. Counseling: I had a detailed discussion with the patient and/or guardian regarding the historical points, exam findings, and any diagnostic results supporting the discharge/admit diagnosis, lab results, radiology results, the need for outpatient follow up, to return to the emergency department if symptoms worsen or persist or if there are any questions or concerns that arise at home. Response to treatment: the patient's symptoms have markedly improved after treatment. 06/01 01:34 Order name: Basic Metabolic Panel; Complete Time: 02:48 rt 06/01 01:34 Order name: CBC with Diff; Complete Time: 02:48 rt 06/01 01:34 Order name: LFT's; Complete Time: 02:48 rt 06/01 01:34 Order name: Magnesium; Complete Time: 02:48 rt 06/01 01:34 Order name: NT PRO-BNP; Complete Time: 02:48 rt 06/01 01:34 Order name: Troponin HS; Complete Time: 02:48 rt 06/01 01:34 Order name: XRAY Chest (1 view) rt 06/01 01:34 Order name: EKG; Complete Time: 01:35 rt 06/01 01:34 Order name: Cardiac monitoring; Complete Time: 01:40 rt 06/01 01:34 Order name: EKG - Nurse/Tech; Complete Time: 01:40 rt 06/01 01:34 Order name: IV Saline Lock; Complete Time: 01:40 rt 06/01 01:34 Order name: Labs collected and sent; Complete Time: 01:40 rt 06/01 01:34 Order name: O2 Per Protocol; Complete Time: 01:41 rt 06/01 01:34 Order name: O2 Sat Monitoring; Complete Time: 01:40 rt EC:20 Rate is 112 beats/min. Rhythm is regular, Sinus tachycardia with No ectopy. QRS [place] is rt Normal. MT interval is normal. QRS interval is normal. QT interval is normal. No Q waves. T waves are Normal. No ST changes noted. Interpreted by me. Administered Medications: 01:40 Drug: predniSONE PO 40 mg PO once Route: PO; bm8 02:36 Follow up: Response: No adverse reaction bm8 01:40 Drug: DuoNeb Nebulize (3:1) (2.5 mg - 0.5 mg) 3 ml Nebulizer once Route: Nebulizer; bm8 02:35 Follow up: Response: No adverse reaction bm8 Disposition Summary: 06/01/24 03:00 Discharge Ordered Notes: Location: Home rt Problem: new rt Symptoms: have improved rt Condition: Stable rt Diagnosis - Unspecified asthma, uncomplicated rt Followup: rt - With: Private Physician - When: 2 - 3 days - Reason: Discharge Instructions: - Discharge Summary Sheet rt - Asthma, Adult rt Forms: - Medication Reconciliation Form rt - Antibiotic Education rt - Prescription Opioid Use rt - Patient Portal Instructions rt - Leadership Thank You Letter rt Prescriptions: - albuterol sulfate 90 mcg/actuation Inhalation HFA Aerosol Inhaler - inhale 2 puff INHALATION route every 4 to 6 hours as needed for bronchospasm; 2 rt Each; Refills: 0, Product Selection Permitted - Albuterol Sulfate 2.5 mg /3 mL (0.083 %) Inhalation Solution for Nebulization - inhale 1 unit NEBULIZATION route every 4 hours As needed; 90 unit; Refills: 0, rt Product Selection Permitted - Prednisone 20 mg Oral tablet - take 2 tablets ORAL route once daily for 4 days; 8 tablet; Refills: 0, Product rt Selection Permitted Signatures: Dispatcher [employer] Chaparro Ribeiro MD MD rt Hi Hansen, RN RN bm8
--- NOTE | 2024-06-01 03:01 | ER ---
Nurse's Notes [facility] Name: Barbara Patton Age: 43 yrs Sex: Female : 1980 Arrival Date: 06/01/2024 Time: :08 Bed 5 Private MD: Diagnosis: Unspecified asthma, uncomplicated Presentation: 06/01 01:41 Chief complaint: Patient states: I have been short of breath since Saturday and it feels bm8 like it is getting worse. Coronavirus screen: At this time, the client does not indicate any symptoms associated with coronavirus-19. Ebola Screen: Patient negative for fever greater than or equal to 101.5 degrees Fahrenheit, and additional compatible Ebola Virus Disease symptoms Patient denies exposure to infectious person. Patient denies travel to an Ebola-affected area in the 21 days before illness onset. No symptoms or risks identified at this time. Initial Sepsis Screen: Does the patient meet any 2 criteria? No. Patient's initial sepsis screen is negative. Does the patient have a suspected source of infection? No. Patient's initial sepsis screen is negative. Risk Assessment: Do you want to hurt yourself or someone else? Patient reports no desire to harm self or others. Onset of symptoms was May 29, 2024. 01:41 Method Of Arrival: Ambulatory bm8 01:41 Acuity: ESTUARDO 3 bm8 Triage Assessment: 01:42 General: Appears in no apparent distress. comfortable, Behavior is calm, cooperative, bm8 appropriate for age. Pain: Denies pain. EENT: No deficits noted. No signs and/or symptoms were reported regarding the EENT system. Neuro: No deficits noted. Level of Consciousness is awake, alert, obeys commands, Oriented to person, place, time, situation, Appropriate for age. Cardiovascular: Denies chest pain, Heart tones S1 S2 present Capillary refill < 3 seconds. Respiratory: Reports shortness of breath Airway is patent Respiratory effort is even, unlabored, Respiratory pattern is regular, symmetrical, Breath sounds with wheezes in right upper lobe, right middle lobe, right lower lobe, right posterior upper lobe, right posterior middle lobe and right posterior lower lobe. GI: No signs and/or symptoms were reported involving the gastrointestinal system. : No signs and/or symptoms were reported regarding the genitourinary system. Derm: No signs and/or symptoms reported regarding the dermatologic system. Musculoskeletal: No signs and/or symptoms reported regarding the musculoskeletal system. 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 - Infectious Disease History:: Denies. - Social history:: Smoking status: Patient reports the use of cigarette tobacco products. - Family history:: not pertinent. Screenin:31 [facility] ED Fall Risk Assessment (Adult) History of falling in the last 3 months, bm8 including since admission No falls in past 3 months (0 pts) Confusion or Disorientation No (0 pts) Intoxicated or Sedated No (0 pts) Impaired Gait No (0 pts) Mobility Assist Device Used No (0 pt) Altered Elimination No (0 pt) Score/Fall Risk Level 0 - 2 = Low Risk Oriented to surroundings, Maintained a safe environment, Educated pt \T\ family on fall prevention, incl call for assistance when getting out of bed, Assessed \T\ reinforced patient's understanding of fall precautions, Hourly rounding (assess needs \T\ fall precautionary measures) done, Used ambulatory aids as needed (educated on \T\ assisted with), Used gait belt as appropriate. Abuse screen: Denies threats or abuse. Nutritional screening: No deficits noted. Tuberculosis screening: No symptoms or risk factors identified. Assessment: 02:31 General: Appears in no apparent distress. comfortable, Behavior is calm, cooperative. bm8 Pain: Denies pain. Neuro: No deficits noted. Cardiovascular: No deficits noted. Respiratory: Reports easier to breathe after NEB treatmeant. Airway is patent Respiratory effort is even, unlabored, Respiratory pattern is regular, symmetrical, Breath sounds are clear bilaterally. 03:16 Reassessment: Patient appears in no apparent distress at this time. Patient and/or bm8 family updated on plan of care and expected duration. Pain level reassessed. Patient is alert, oriented x 3, equal unlabored respirations, skin warm/dry/pink. Patient denies pain at this time. Patient states feeling better. Patient states symptoms have improved. Vital Signs: 01:41 BP 164 / 86; Pulse 111; Resp 20; Temp 98.6; Pulse Ox 95% on R/A; Pain 0/10; bm8 02:31 BP 131 / 87; Pulse 107; Resp 20; Temp 98.6; Pulse Ox 97% ; Weight 99.79 kg; Height 5 bm8 ft. 7 in. ; Pain 0/10; 03:16 BP 118 / 54; Pulse 91; Resp 17; Temp 98.6; Pulse Ox 99% on R/A; Pain 0/10; bm8 02:31 Body Mass Index 34.46 (99.79 kg, 170.18 cm) bm8 01:41 Pain Scale: Adult bm8 02:31 Pain Scale: Adult bm8 03:16 Pain Scale: Adult bm8 [place] Coma Score: 02:31 Eye Response: spontaneous(4). Motor Response: obeys commands(6). Verbal Response: bm8 oriented(5). Total: 15. 03:16 Eye Response: spontaneous(4). Motor Response: obeys commands(6). Verbal Response: bm8 oriented(5). Total: 15. ED Course: 01:15 Patient arrived in ED. gm2 01:16 Chaparro José MD is Attending Physician. rt 01:22 Brian Vásquez, RN is Primary Nurse. rg5 01:42 Triage completed. bm8 01:42 Arm band placed on right wrist. bm8 02:26 XRAY Chest (1 view) In Process Unspecified. EDMS 02:31 Patient has correct armband on for positive identification. Placed in gown. Bed in low bm8 position. Call light in reach. Side rails up X2. Adult w/ patient. Client placed on continuous cardiac and pulse oximetry monitoring. NIBP monitoring applied. quality assurance monitor on. Pulse ox on. NIBP on. Door closed. Noise minimized. Warm blanket given. Pillow given. Verbal reassurance given. Head of bed elevated. 02:31 No provider procedures requiring assistance completed. Initial lab(s) drawn, by dutch torres sent to lab. EKG done, by ED staff, reviewed by Chaparro José MD. Inserted saline lock: 20 gauge in right hand, using aseptic technique. Blood collected. Flushed with 10 mL NS. Response to oxygen therapy: symptoms improved. 03:16 Provided Education on: post er care. bm8 03:16 IV discontinued, intact, bleeding controlled, No redness/swelling at site. Pressure bm8 dressing applied. Administered Medications: 01:40 Drug: predniSONE PO 40 mg PO once Route: PO; bm8 02:36 Follow up: Response: No adverse reaction bm8 01:40 Drug: DuoNeb Nebulize (3:1) (2.5 mg - 0.5 mg) 3 ml Nebulizer once Route: Nebulizer; bm8 02:35 Follow up: Response: No adverse reaction bm8 Medication: 02:31 VIS not applicable for this client. bm8 Outcome: 03:00 Discharge ordered by . rt 03:16 Discharged to home ambulatory, bm8 03:16 Condition: stable 03:16 Discharge instructions given to patient, family, Instructed on discharge instructions, follow up and referral plans. no drinking with medication, no driving heavy equipment, medication usage, safety practices, Demonstrated understanding of instructions, follow-up care, medications, Prescriptions given X 3, 03:17 Patient left the ED. bm8 Signatures: Dispatcher [employer] EDMS Chaparro José MD MD rt Loren Sanchez gm2 Hi Hansen, RN RN bm8 Brian Vásquez, RN RN rg5
[2024-06-01 03:51] VITALS: TEMP 98.6
[2024-06-01 03:55] VITALS: BP 118/54; O2SAT 99
--- NOTE | 2024-06-01 12:47 | EKG ---
Test Date: 2024-06-01 Test Time: 01:51:15 Fulfillment Specialist: HAIDER MEASUREMENT RESULTS: Intervals: Rate: 112 NE: 148 QRSD: 70 QT: 330 QTc: 450 [place]: P: 70 NE: 148 QRS: 33 T: 82 INTERPRETIVE STATEMENTS: Sinus tachycardia Septal infarct, age undetermined Abnormal ECG No previous ECG available for comparison Electronically Signed On 06-01-24 12:46:39 CDT by Valeriy Vargas
--- NOTE | 2024-06-01 15:02 | RAD REPORT ---
EXAM DESCRIPTION: XR CHEST 1 VIEW 06/01/2024 2:34 AM CDT CLINICAL HISTORY: 43 years, Female, Dyspnea. COMPARISON: None. FINDINGS: 1 view of the chest (AP portable projection) was obtained. No prior films are available at this time for comparison. There is normal lung volume. Mediastinum: The cardiomediastinal silhouette appears normal in size and shape. Lungs: No areas of consolidations or masses are identified. Heart: The heart is normal in size. Thoracic aorta: The thoracic aorta demonstrate to be normal. Pulmonary vasculature: The pulmonary vasculature is normal in distribution. Pleura: The costophrenic angles demonstrate to be sharp. Osseous structures: The bony structures demonstrate minimal deformity posterior bilateral ribs corres ponding to old healed fractures. Other: None. IMPRESSION: No acute cardiopulmonary disease is seen Electronically signed by: Jose Santana MD 06/01/2024 02:50 AM CDT Transcribed Date/Time: 06/01/2024 3:02 PM
== END 2024-06-01 03:17 | disposition home or self-care (01) ==
LOC: ER 01:08
DX: J45.909 Unspecified asthma, uncomplicated (principal); I10 Essential (primary) hypertension; Z72.0 Tobacco use
CPT/HCPCS: 93005; 85025; 80048; 36415; 83735; 80076; 84484; 83880; 71045; J7512; J7613; J7644; 99285

== ENCOUNTER 2024-06-20 22:48 | Emergency (ER) | payer OTHER ==
[2024-06-20] MEDS ORDERED: CEFTRIAXONE 1000 MG/VIAL ONE (23:34)
[2024-06-20] MEDS ORDERED: IPRATROPIUM BROM 0.5MG/2.5ML ONE (23:34)
[2024-06-20] MEDS ORDERED: ALBUTEROL 2.5 MG/3 ML NEB SOL ONE ×2 (23:34→23:35)
[2024-06-20] MEDS ORDERED: METHYLPREDNISOLONE 125 MG INJ ONE (23:35)
[2024-06-20 23:40] LABS: Absolute Basophils 0.1 K/uL (0-0.5); Absolute Eosinophils 0.3 K/uL (0-0.5); Absolute Monocytes 0.9 K/uL (0.1-1.3); Absolute Neutrophil 9.6 K/uL (1.8-8.0); Basophils % 0.6 % (0-1.3); Eosinophils % 2.3 % (0-4.4); Hematocrit 39.7 % (36.0-45.0); Hemoglobin 12.7 g/dL (12.0-15.0); Lymphocytes % 15.8 % (15.3-44.8); MCH 26.2 pg (27.0-35.0); MCHC 31.9 g/dL (32.0-36.0); MPV 8.3 fL (7.6-11.3); Monocytes % 6.9 % (3.3-12.3); Neutrophils % 74.4 % (41.7-73.7); Nucleated Red Blood Cells % 0.1 % (0-0); Platelets 322 thou/uL (152-406); RBC Red Blood Cell Count 4.84 M/uL (3.86-4.86); Red Cell Distribution Width 16.4 % (12.1-15.2)
[2024-06-20] MEDS ORDERED: ACETAMINOPHEN 500 MG TAB ONE (23:40)
[2024-06-20 23:47] LABS: PT Prothrombin Time 11.7 SECONDS (9.4-12.5); PTT, Activated Partial Thromb 36.6 SECONDS (24.3-36.9); Protime INR 1.05
[2024-06-20 23:55] LABS: SARS-CoV-2 Antigen CONTROL BLUE LINE VIS/BG OK; SARS-CoV-2 Antigen Rapid Res Negative (Negative)
[2024-06-20 23:56] LABS: Albumin 3.1 g/dL (3.4-5.0); Albumin/Globulin Ratio 0.7 (1.1-1.8); Anion Gap 7.9 mEq/L (5.0-15.0); Bilirubin Total 0.2 mg/dL (0.2-1.0); Globulin 4.3 g/dL (2.3-3.5); Potassium 3.9 mEq/L (3.5-5.1); Protein, Total 7.4 g/dL (6.4-8.2)
--- NOTE | 2024-06-21 01:07 | EDPHYS ---
Physician Documentation [facility] Name: Barbara Patton Age: 43 yrs Sex: Female : 1980 Arrival Date: 06/20/2024 Time: 22:48 Bed 6 Private MD: ED Physician Mejia Faulkner HPI: 06/20 23:10 This 43 yrs old Female presents to ER via Unassigned with complaints of ec2 Shortness Of Breath. 23:10 Patient arrives today for evaluation of shortness of breath ongoing for several weeks. ec2 Patient reports that she was previously seen here, started on steroids and is having persistent shortness of breath as well as worsening cough now. No vomiting, no diarrhea, no fevers.. 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 - Infectious Disease History:: Denies. - Social history:: Smoking status: Patient reports the use of cigarette tobacco products, smokes one-half pack cigarettes per day. ROS: 23:10 Constitutional: as per hpi ec2 Exam: 23:10 Constitutional: GEN: NAD Head: atraumatic Eyes: EOMI Ears: External ears are ec2 normal. CV: regular rate LUNGS: no respiratory distress, scattered wheezes noted. ABD: non-distended SKIN: no evidence of rashes MSK: no evidence of trauma Vital Signs: 22:50 BP 196 / 97; Pulse 110; Resp 19 S; Temp 98.3(O); Pulse Ox 98% on R/A; Weight 99.79 kg; ha1 Height 5 ft. 3 in. ; Pain 9/; 23:20 BP 153 / 87; Pulse 94; Resp 18; Pulse Ox 96% ; dd2 23:49 Pulse 86; ec2 06/21 01:18 BP 146 / 73; Pulse 84; Resp 17; Pulse Ox 98% ; dd2 06/20 22:50 Body Mass Index 38.97 (99.79 kg, 160.02 cm) ha1 06/20 22:50 Pain Scale: Adult ha1 [place] Coma Score: 06/20 23:20 Eye Response: spontaneous(4). Motor Response: obeys commands(6). Verbal Response: dd2 oriented(5). Total: 15. MDM: 23:00 Patient medically screened. ec2 23:10 Data reviewed: vital signs. ED course: Patient arrives today for evaluation of ec2 shortness of breath. Examination remarkable for pulmonary findings as above. Will obtain lab work, EKG, chest x-ray. Differential includes process such as pneumonia, viral infection, asthma exacerbation.. 23:47 ED course: EKG independently reviewed and interpreted by me, shows normal sinus rhythm, ec2 rate of 86, no acute ST segment elevations, intervals are nonactionable.. 23:59 ED course: CBC shows slight leukocytosis of 12.9. Metabolic profile is reassuring. ec2 Lactic acid within normal ranges. Flu testing negative. . 06/21 00:01 ED course: Chest x-ray independently reviewed and interpreted by me, shows no lobar ec2 pneumonia, does have trace bilateral pleural effusions noted. . 01:05 ED course: On reassessment patient with marked improvement in symptoms. Will discharge ec2 home, presentation consistent with COPD exacerbation. Return precautions given.. 06/20 23:04 Order name: Blood Culture Adult (2) ec2 06/20 23:04 Order name: CBC with Diff; Complete Time: 23:59 ec2 06/20 23:04 Order name: CMP; Complete Time: 23:59 ec2 06/20 23:04 Order name: Lactate w/ 2H reflex if indic.; Complete Time: 23:59 ec2 06/20 23:04 Order name: Protime (+inr); Complete Time: 23:59 ec2 06/20 23:04 Order name: Ptt, Activated; Complete Time: 23:59 ec2 06/20 23:04 Order name: Influenza Screen (a \T\ B); Complete Time: 23:59 ec2 06/20 23:04 Order name: SARS RAPID; Complete Time: 00:07 ec2 06/20 23:59 Order name: Glucose, Ancillary Testing; Complete Time: 00:07 EDMS 06/20 23:04 Order name: Chest Single View XRAY ec2 06/20 23:04 Order name: EKG; Complete Time: 23:05 ec2 06/20 23:04 Order name: Accucheck; Complete Time: 01:21 ec2 06/20 23:04 Order name: Cardiac monitoring; Complete Time: 23:17 ec2 06/20 23:04 Order name: EKG - Nurse/Tech; Complete Time: 01:21 ec2 06/20 23:04 Order name: IV Saline Lock - Large Bore; Complete Time: 23:17 ec2 06/20 23:04 Order name: Labs collected and sent; Complete Time: 23:17 ec2 06/20 23:04 Order name: O2 Per Protocol; Complete Time: 23:17 ec2 06/20 23:04 Order name: O2 Sat Monitoring; Complete Time: 23:17 ec2 06/20 23:04 Order name: Vital Signs; Complete Time: 23:17 ec2 Administered Medications: 06/20 23:52 Drug: Acetaminophen PO 1000 mg PO once Route: PO; dd2 06/21 00:22 Follow up: Response: No adverse reaction dd2 06/20 23:52 Drug: DuoNeb Nebulize (3:1) (2.5 mg - 0.5 mg) 3 ml Nebulizer once Route: Nebulizer; dd2 06/21 00:22 Follow up: Response: No adverse reaction dd2 06/20 23:52 Drug: Rocephin IV 1 grams IV at calculated rate once; Given slow IV push per pharmacy dd2 instructions Route: IV; Rate: calculated rate; Site: right antecubital; 06/21 00:02 Follow up: Response: No adverse reaction; IV Status: Completed infusion; IV Intake: [id number] 00:07 Follow up: Response: No adverse reaction dd2 06/20 23:52 Drug: MethylPrednisoLONE IVP 125 mg IVP once Route: IVP; Site: right antecubital; dd2 06/21 00:07 Follow up: Response: No adverse reaction dd2 01:20 Drug: AZITHromycin PO 500 mg PO once Route: PO; dd2 01:20 Follow up: Response: Medication administered at discharge. dd2 Disposition Summary: 06/21/24 01:06 Discharge Ordered Notes: Location: Home ec2 Condition: Stable ec2 Diagnosis - Mild intermittent asthma with (acute) exacerbation ec2 Followup: ec2 - With: Private Physician - When: - Reason: Recheck today's complaints Discharge Instructions: - Discharge Summary Sheet ec2 - Asthma, Adult ec2 Forms: - Medication Reconciliation Form ec2 - Antibiotic Education ec2 - Prescription Opioid Use ec2 - Patient Portal Instructions ec2 - Leadership Thank You Letter ec2 Prescriptions: - azithromycin 250 mg Oral tablet - take 1 tablet ORAL route daily; 4 tablet; Refills: 0, Product Selection ec2 Permitted - Prednisone 20 mg Oral Tablet - take 2 tablets ORAL route once daily for 5 days; 10 tablet; Refills: 0, Product ec2 Selection Permitted Signatures: Dispatcher [employer] [facility] Claudia Palacio, RN RN ha1 Mejia Faulkner MD MD ec2 AMADOU DIAS RN RN dd2 Corrections: (The following items were deleted from the chart) 06/20 23:05 23:05 Chest Single View+[email or web address].[email or web address] ordered. [facility] 06/21 01:07 01:06 COPD/ Chronic obstructive pulmonary disease, unspecified ec2 ec2
--- NOTE | 2024-06-21 01:07 | ER ---
Nurse's Notes [facility] Name: Barbara Patton Age: 43 yrs Sex: Female : 1980 Arrival Date: 06/20/2024 Time: 22:48 Bed 6 Private MD: Diagnosis: Mild intermittent asthma with (acute) exacerbation Presentation: 06/20 22:50 Chief complaint: Patient states: SHORTNESS OF BREATH SINCE SATURDAY . BILATERAL RIB ha1 PAIN. 22:50 Coronavirus screen: Vaccine status: Patient reports being unvaccinated. Ebola Screen: ha1 No symptoms or risks identified at this time. Initial Sepsis Screen: Does the patient meet any 2 criteria? No. Patient's initial sepsis screen is negative. Does the patient have a suspected source of infection? No. Patient's initial sepsis screen is negative. Risk Assessment: Do you want to hurt yourself or someone else? Patient reports no desire to harm self or others. Onset of symptoms was June 18, 2024. 22:50 Method Of Arrival: Ambulatory ha1 22:50 Acuity: ESTUARDO 3 ha1 Triage Assessment: 22:50 General: Appears uncomfortable, Behavior is cooperative. Pain: Complains of pain in RIB ha1 CAGE. 06/21 01:19 Respiratory: Onset: The symptoms/episode began/occurred at an unknown time. 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 - Infectious Disease History:: Denies. - Social history:: Smoking status: Patient reports the use of cigarette tobacco products, smokes one-half pack cigarettes per day. Screenin:20 [facility] ED Fall Risk Assessment (Adult) History of falling in the last 3 months, dd2 including since admission No falls in past 3 months (0 pts) Confusion or Disorientation No (0 pts) Intoxicated or Sedated No (0 pts) Impaired Gait No (0 pts) Mobility Assist Device Used No (0 pt) Altered Elimination No (0 pt) Score/Fall Risk Level 0 - 2 = Low Risk Oriented to surroundings, Maintained a safe environment, Educated pt \T\ family on fall prevention, incl call for assistance when getting out of bed, Assessed \T\ reinforced patient's understanding of fall precautions, Hourly rounding (assess needs \T\ fall precautionary measures) done. Abuse screen: Denies threats or abuse. Nutritional screening: No deficits noted. Tuberculosis screening: No symptoms or risk factors identified. Assessment: 23:20 General: Appears uncomfortable, Behavior is calm, cooperative, appropriate for age. dd2 Pain: Complains of pain in left lateral anterior chest and right lateral anterior chest Aggravated by cough, deep breathing. Neuro: Level of Consciousness is awake, alert, obeys commands, Oriented to person, place, time, situation, Appropriate for age. Cardiovascular: Heart tones S1 S2 Patient's skin is warm and dry. Rhythm is sinus rhythm. Respiratory: Reports shortness of breath at rest on exertion cough that is productive, Airway is patent Respiratory effort is even, unlabored, Respiratory pattern is regular, symmetrical, Breath sounds with rhonchi in left upper lobe Breath sounds with wheezes bilaterally. the patient has mild shortness of breath. GI: No deficits noted. No signs and/or symptoms were reported involving the gastrointestinal system. Abdomen is round non-distended. : No deficits noted. No signs and/or symptoms were reported regarding the genitourinary system. EENT: No deficits noted. No signs and/or symptoms were reported regarding the EENT system. Derm: No deficits noted. No signs and/or symptoms reported regarding the dermatologic system. Musculoskeletal: No deficits noted. No signs and/or symptoms reported regarding the musculoskeletal system. Vital Signs: 22:50 BP 196 / 97; Pulse 110; Resp 19 S; Temp 98.3(O); Pulse Ox 98% on R/A; Weight 99.79 kg; ha1 Height 5 ft. 3 in. ; Pain 05/26; 23:20 BP 153 / 87; Pulse 94; Resp 18; Pulse Ox 96% ; dd2 23:49 Pulse 86; ec2 06/21 01:18 BP 146 / 73; Pulse 84; Resp 17; Pulse Ox 98% ; dd2 06/20 22:50 Body Mass Index 38.97 (99.79 kg, 160.02 cm) ha1 06/20 22:50 Pain Scale: Adult ha1 [place] Coma Score: 06/20 23:20 Eye Response: spontaneous(4). Motor Response: obeys commands(6). Verbal Response: dd2 oriented(5). Total: 15. ED Course: 22:50 Patient arrived in ED. [id number] 22:50 Mejia Faulkner MD is Attending Physician. ec2 22:51 AMADOU DIAS, RN is Primary Nurse. dd2 23:16 Initial lab(s) drawn, by me, sent to lab. First set of blood cultures drawn COVID swab dd2 sent to lab. Flu and/or RSV swab sent to lab. 23:17 Inserted saline lock: 20 gauge in right antecubital area, using aseptic technique. dd2 Blood collected. Flushed with 10 mL NS. 23:20 No provider procedures requiring assistance completed. dd2 23:20 Patient has correct armband on for positive identification. Bed in low position. Call dd2 light in reach. Side rails up X 1. Provided Education on: MEDICATIONS, CALL LIGHT, LABS/RADIOLOGY. Client placed on continuous cardiac and pulse oximetry monitoring. NIBP monitoring applied. hall monitor on. Door closed. Noise minimized. Warm blanket given. Pillow given. Verbal reassurance given. 23:24 Chest Single View XRAY In Process Unspecified. EDMS 23:29 SARS RAPID Sent. dd2 23:29 Influenza Screen (a \T\ B) Sent. dd2 23:29 Blood Culture Adult (2) Sent. dd2 23:30 CBC with Diff Sent. dd2 23:30 CMP Sent. dd2 23:30 Lactate w/ 2H reflex if indic. Sent. dd2 23:30 Protime (+inr) Sent. dd2 23:30 Ptt, Activated Sent. dd2 23:37 Triage completed. ha1 23:49 EKG done, by ED staff, reviewed by Mejia Faulkner MD. sa1 06/21 01:18 IV discontinued, intact, bleeding controlled, No redness/swelling at site. Pressure dd2 dressing applied. 01:20 Arm band placed on right wrist. Patient placed in an exam room, on a stretcher, on dd2 cardiac care nurse, on pulse oximetry. Administered Medications: 06/20 23:52 Drug: Acetaminophen PO 1000 mg PO once Route: PO; dd2 06/21 00:22 Follow up: Response: No adverse reaction dd2 06/20 23:52 Drug: DuoNeb Nebulize (3:1) (2.5 mg - 0.5 mg) 3 ml Nebulizer once Route: Nebulizer; dd2 06/21 00:22 Follow up: Response: No adverse reaction dd2 06/20 23:52 Drug: Rocephin IV 1 grams IV at calculated rate once; Given slow IV push per pharmacy dd2 instructions Route: IV; Rate: calculated rate; Site: right antecubital; 06/21 00:02 Follow up: Response: No adverse reaction; IV Status: Completed infusion; IV Intake: [id number] 00:07 Follow up: Response: No adverse reaction dd2 06/20 23:52 Drug: MethylPrednisoLONE IVP 125 mg IVP once Route: IVP; Site: right antecubital; dd2 06/21 00:07 Follow up: Response: No adverse reaction dd2 01:20 Drug: AZITHromycin PO 500 mg PO once Route: PO; dd2 01:20 Follow up: Response: Medication administered at discharge. dd2 Medication: 06/20 23:20 VIS not applicable for this client. dd2 Intake: 06/21 00:02 IV: 10ml; Total: 10ml. dd2 Outcome: 01:06 Discharge ordered by . ec2 01:18 Discharged to home ambulatory, dd2 01:18 Condition: stable 01:18 Discharge instructions given to patient, Instructed on discharge instructions, follow up and referral plans. medication usage, Demonstrated understanding of instructions, follow-up care, medications, Prescriptions given X 2, 01:21 Patient left the ED. dd2 Signatures: Dispatcher [employer] Delia Patel [id number] Claudia Palacio RN RN ab1 Mejia Faulkner MD MD ec2 Sultan kadeem Davis DIANA, RN RN dd2
[2024-06-21] MEDS ORDERED: AZITHROMYCIN 250 MG TAB ONE (01:13)
--- NOTE | 2024-06-21 01:13 | RAD REPORT ---
EXAM: XR Chest, 1 View CLINICAL HISTORY: Cough. TECHNIQUE: Frontal view of the chest. COMPARISON: XR Chest 06/01/2024. FINDINGS: Lungs: Mild right basilar opacification. Pleural space: Blunting of the costophrenic angles bilaterally. No pneumothorax. Heart: Unremarkable. No cardiomegaly. Mediastinum: Unremarkable. Normal mediastinal contour. Bones/joints: Remote bilateral rib fractures. IMPRESSION: 1. Mild right basilar opacification (atelectasis and/or infiltrate). 2. Possible small bilateral pleural effusions. Electronically signed by: Ele Boles MD 06/21/2024 12:02 AM CDT Due to temporary technical issues with the PACS/Dydra reporting system, reports are being moises d by the in-house radiologist without review as a courtesy to ensure prompt reporting the interpreting radiologist is fully responsible for the content of the report. Transcribed Date/Time: 06/21/2024 1:13 AM
[2024-06-21 01:47] VITALS: TEMP 98.3
--- NOTE | 2024-06-22 11:56 | EKG ---
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
[2024-06-22 13:05] VITALS: BP 146/73; O2SAT 98
== END 2024-06-21 01:21 | disposition home or self-care (01) ==
LOC: ER 22:48
DX: J45.21 Mild intermittent asthma with (acute) exacerbation (principal); Z11.52 Encounter for screening for COVID-19
CPT/HCPCS: 93005; 87040 ×2; 85025; 36415; 85610; 82947; 83605; 85730; 80053; 87804 ×2; 71045; 96375; 96374; 99285; 87811; J7613 ×2; J7644; J2919; J0696

== ENCOUNTER 2024-11-11 22:39 | Emergency (ER) | payer SELFPAY ==
[2024-11-11 23:50] LABS: Influenza A Ag Negative; Influenza B Ag Negative; SARS-CoV-2 Antigen Rapid Res Negative (Negative)
--- NOTE | 2024-11-11 23:56 | EDPHYS ---
Physician Documentation [facility] Name: Barbara Patton Age: 44 yrs Sex: Female : 1980 Arrival Date: 11/11/2024 Time: 22:39 Bed DX3 Private MD: ED Physician Dontrell Romo HPI: 11/11 22:45 This 44 yrs old Female presents to ER via Unassigned with complaints of Flu Symptoms. kb 22:45 Pt is a 44 year old female who presents for cough, congestion, shortness of breath, kb chills and bodyaches that started 3 days ago. Grandkids tested positive for the flu. States "I mainly came in because I need a note for work.". 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 Flu vaccine is not up to date. - Infectious Disease History:: Denies. - Social history:: Smoking status: Patient reports the use of cigarette tobacco products, smokes one pack cigarettes per day. ROS: 22:45 Constitutional: As per HPI kb Exam: 22:45 Constitutional: This is a well developed, well nourished patient who is awake, alert, kb and in no acute distress. Head/Face: Normocephalic, atraumatic. ENT: Moist Mucous membranes Cardiovascular: Regular rate Respiratory: Respirations even and unlabored. No increased work of breathing. Talking in full sentences Abdomen/GI: Soft, non-tender. No distention Skin: Warm, dry with normal turgor. Normal color. MS/ Extremity: Pulses equal, no cyanosis. Neurovascular intact. Full, normal range of motion. Neuro: Awake and alert, GCS 15, oriented to person, place, time, and situation. Vital Signs: 22:54 Weight 90.72 kg; Height 5 ft. 7 in. ; Pain 5/10; vc1 22:57 BP 142 / 97; Pulse 104; Resp 20; Temp 98.1; Pulse Ox 95% on R/A; vc1 11/12 00:26 BP 138 / 88; Pulse 98; Resp 18; Pulse Ox 96% ; vc1 11/11 22:54 Body Mass Index 31.32 (90.72 kg, 170.18 cm) vc1 11/11 22:54 Pain Scale: Adult vc1 MDM: 11/11 22:43 Medical Screening Exam initiated kb 22:46 Differential diagnosis: flu, covid, uri. Data reviewed: vital signs, nurses notes. Test kb considered but Not performed: X-ray: CXR considered but lungs clear bilaterally, resp even and unlabored. . 22:47 Care significantly affected by the following chronic conditions: asthma. kb 23:55 Counseling: I had a detailed discussion with the patient and/or guardian regarding the kb historical points, exam findings, and any diagnostic results supporting the discharge/admit diagnosis, lab results, the need for outpatient follow up, a family practitioner, to return to the emergency department if symptoms worsen or persist or if there are any questions or concerns that arise at home. 11/11 22:47 Order name: COVID-19 Ag + Flu A+B Ag; Complete Time: 23:55 kb Administered Medications: No medications were administered Disposition: 11/12 04:18 Co-signature as Attending Physician, Dontrell Romo MD I agree with the assessment sp4 and plan of care. I reviewed the patient's care provided by the Advanced Practice Provider and agree with the diagnosis and treatment plan. Disposition Summary: 11/11/24 23:55 Discharge Ordered Notes: Location: Home kb Condition: Stable kb Diagnosis - Acute upper respiratory infection, unspecified kb Followup: kb - With: Emergency Department - When: As needed - Reason: Worsening of condition Followup: kb - With: Private Physician - When: 2 - 3 days - Reason: Recheck today's complaints, Continuance of care, Re-evaluation by your physician Discharge Instructions: - Discharge Summary Sheet kb - Upper Respiratory Infection, Adult, [id number] kb - Viral Respiratory Infection, [id number] kb Forms: - Work release form kb - Medication Reconciliation Form kb - Antibiotic Education kb - Prescription Opioid Use kb - Patient Portal Instructions kb - Leadership Thank You Letter kb Prescriptions: - albuterol sulfate 90 mcg/actuation Inhalation HFA Aerosol Inhaler - inhale 2 puff INHALATION route every 4-6 hours As needed; 1 unit; Refills: 0, kb Product Selection Permitted Signatures: Dispatcher [employer] EDAnastasia Landaverde, NICOLE COATESPDiana Juarez RN RN vc1 Dontrell Romo MD MD sp4 Corrections: (The following items were deleted from the chart) 11/11 22:47 22:45 Pt is a 44 year old female who presents for cough, congestion, shortness of kb breath, chills and bodyaches that started 3 days ago. Grandkids tested positive for the flu. kb
--- NOTE | 2024-11-11 23:56 | ER ---
Nurse's Notes [facility] Name: Barbara Patton Age: 44 yrs Sex: Female : 1980 Arrival Date: 11/11/2024 Time: 22:39 Bed DX3 Private MD: Diagnosis: Acute upper respiratory infection, unspecified Presentation: 11/11 22:54 Chief complaint: Patient states: cough, congestion, sob, aching, fever, cold chills. vc1 Coronavirus screen: Client denies travel out of the [place] in the last 14 days. chills, cough unrelated to allergies, difficulty breathing, fever, headache, Client presents with at least one sign or symptom that may indicate coronavirus-19. Ebola Screen: Patient negative for fever greater than or equal to 101.5 degrees Fahrenheit, and additional compatible Ebola Virus Disease symptoms Patient denies exposure to infectious person. Patient denies travel to an Ebola-affected area in the 21 days before illness onset. No symptoms or risks identified at this time. Initial Sepsis Screen: Does the patient meet any 2 criteria? No. Patient's initial sepsis screen is negative. Does the patient have a suspected source of infection? No. Patient's initial sepsis screen is negative. Risk Assessment: Do you want to hurt yourself or someone else? Patient reports no desire to harm self or others. Onset of symptoms was November 09, 2024. 22:54 Method Of Arrival: Ambulatory vc1 22:54 Acuity: ESTUARDO 4 vc1 Triage Assessment: 11/12 00:23 General: Appears in no apparent distress. uncomfortable, Behavior is calm, cooperative, vc1 appropriate for age. Pain: Complains of pain in head and throat. EENT: No deficits noted. No signs and/or symptoms were reported regarding the EENT system. Neuro: Level of Consciousness is awake, alert, obeys commands, Oriented to person, place, time, situation, Appropriate for age. Cardiovascular: Capillary refill < 3 seconds Patient's skin is warm and dry. Respiratory: Reports cough that is Airway is patent Respiratory effort is even, unlabored, Respiratory pattern is regular, symmetrical, Breath sounds are clear bilaterally. GI: No deficits noted. No signs and/or symptoms were reported involving the gastrointestinal system. : No deficits noted. No signs and/or symptoms were reported regarding the genitourinary system. Derm: Skin is intact, is healthy with good turgor, Skin is dry, Skin is normal, Skin temperature is warm. Musculoskeletal: Circulation, motion, and sensation intact. Range of motion: intact in all extremities. 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 Flu vaccine is not up to date. - Infectious Disease History:: Denies. - Social history:: Smoking status: Patient reports the use of cigarette tobacco products, smokes one pack cigarettes per day. Screenin:56 [facility] ED Fall Risk Assessment (Adult) History of falling in the last 3 months, vc1 including since admission No falls in past 3 months (0 pts) Confusion or Disorientation No (0 pts) Intoxicated or Sedated No (0 pts) Impaired Gait No (0 pts) Mobility Assist Device Used No (0 pt) Altered Elimination No (0 pt) Score/Fall Risk Level 0 - 2 = Low Risk Oriented to surroundings, Maintained a safe environment, Educated pt \T\ family on fall prevention, incl call for assistance when getting out of bed. Abuse screen: Denies threats or abuse. Nutritional screening: No deficits noted. Tuberculosis screening: No symptoms or risk factors identified. Vital Signs: 22:54 Weight 90.72 kg; Height 5 ft. 7 in. ; Pain 5/10; vc1 22:57 BP 142 / 97; Pulse 104; Resp 20; Temp 98.1; Pulse Ox 95% on R/A; vc1 11/12 00:26 BP 138 / 88; Pulse 98; Resp 18; Pulse Ox 96% ; vc1 11/11 22:54 Body Mass Index 31.32 (90.72 kg, 170.18 cm) vc1 11/11 22:54 Pain Scale: Adult vc1 ED Course: 11/11 22:41 Patient arrived in ED. jj6 22:43 [facility] kb 22:43 Dontrell Romo MD is Attending Physician. kb 22:55 Triage completed. vc1 22:56 Arm band placed on right wrist. vc1 11/12 00:00 Patient has correct armband on for positive identification. Bed in low position. Call vc1 light in reach. Pulse ox on. NIBP on. 00:00 Provided Education on: take OTC. vc1 :23 Diana Bustamante, RN is Primary Nurse. vc1 :26 No provider procedures requiring assistance completed. Patient did not have IV access vc1 during this emergency room visit. Administered Medications: No medications were administered Medication: 11/11 22:57 VIS not applicable for this client. vc1 Outcome: 23:55 Discharge ordered by MD. kb 11/12 00:27 Discharged to home ambulatory, vc1 Condition: stable Discharge instructions given to patient, Instructed on discharge instructions, follow up and referral plans. medication usage, Demonstrated understanding of instructions, follow-up care, medications, Prescriptions given X , :27 Patient left the ED. vc1 Signatures: Anastasia Mcgee, TANVIR-Thomas RAMEY-Delia Winn [id number] Diana Bustamante, RN RN vc1
[2024-11-12 00:36] VITALS: TEMP 98.1
[2024-11-12 00:38] VITALS: BP 138/88; O2SAT 96
== END 2024-11-12 00:27 | disposition home or self-care (01) ==
LOC: ER 22:39
DX: J06.9 Acute upper respiratory infection, unspecified (principal); Z11.52 Encounter for screening for COVID-19
CPT/HCPCS: 36415; 87428; 99283